=== PATIENT | male | born 1955 | race Caucasian/White ===

== ENCOUNTER 2016-11-30 06:32 | Emergency (ER) | payer MEDICARE ==
[2016-11-30] MEDS ORDERED: HYDROcodone/APAP 5-325MG 1 EACH TAB PO STA (07:18)
[2016-11-30] MEDS ORDERED: METOCLOPRAMIDE 10 MG TAB PO STA (07:18)
--- NOTE | 2016-11-30 07:27 | ED ---
General Adult HPI - General Chief complaint: Recheck/Abnormal Lab/Rx Stated complaint: withdraawls Time Seen by Provider: 11/30/16 07:05 Source: patient, EMS, RN notes reviewed Mode of arrival: EMS Limitations: no limitations - History of Present Illness Initial comments: Patient is a pleasant 61-year-old male presenting to the emergency department concerning for medication withdrawal. Patient has been on narcotics long-term for chronic back problems. Patient is on morphine. Patient ran out 4 days ago. [facility] not [facility] this medication until Friday. Patient feels like his skin is crawling and feels cold inside. Patient does have some nausea. Patient did have vomiting earlier however that has resolved. - Related Data Home Medications Medication Instructions Recorded Confirmed glipiZIDE [Glucotrol] 10 mg PO BID 03/12/15 10/18/15 Omeprazole [PriLOSEC] 10 mg PO DAILY 03/27/15 10/18/15 Morphine Sulfate [Ms Contin] 15 mg PO Q6HR 10/18/15 10/18/15 oxyCODONE HCL 30 mg PO Q6HR 10/18/15 10/18/15 Previous Rx's Medication Instructions Recorded Hydrocodone/Acetaminophen [[place] 1 each PO Q6HR PRN #12 tab 11/30/16 5-325] Allergies Allergy/AdvReac Type Severity Reaction Status Date / Time aspirin Allergy Itching Verified 10/18/15 18:26 ibuprofen [From Motrin] AdvReac Itching Verified 10/18/15 18:26 methocarbamol [From Robaxin] AdvReac Itching Verified 10/18/15 18:26 Review of Systems ROS Statement: Those systems with pertinent positive or pertinent negative responses have been documented in the HPI. ROS Other: All systems not noted in ROS Statement are negative. Constitutional: Denies: fever Eyes: Denies: eye pain ENT: Denies: ear pain Respiratory: Denies: cough Cardiovascular: Denies: chest pain Endocrine: Denies: fatigue Gastrointestinal: Reports: nausea Genitourinary: Denies: dysuria Musculoskeletal: Reports: back pain (Chronic) Skin: Denies: rash Neurological: Denies: headache Psychiatric: Reports: anxiety Past Medical History Past Medical History: Diabetes Mellitus, Hypertension Additional Past Medical History / Comment(s): back pain History of Any Multi-Drug Resistant Organisms: None Reported Additional Past Surgical History / Comment(s): Medical Hx-Chronic back pain, c4- c6 fusion, facial surgery Past Psychological History: No Psychological Hx Reported Smoking Status: Current every day smoker Past Alcohol Use History: None Reported Past Drug Use History: Marijuana General Exam Limitations: no limitations General appearance: alert Head exam: Present: atraumatic Eye exam: Present: normal appearance, PERRL ENT exam: Present: normal oropharynx Neck exam: Present: normal inspection Respiratory exam: Present: normal lung sounds bilaterally Cardiovascular Exam: Present: regular rate, normal rhythm GI/Abdominal exam: Present: soft. Absent: tenderness Extremities exam: Present: normal inspection Back exam: Present: tenderness (Mild lower back) Neurological exam: Present: alert. Absent: motor sensory deficit Psychiatric exam: Present: normal affect, normal mood Skin exam: Absent: rash Course Vital Signs 11/30/16 06:33 Temperature 98.0 F Pulse Rate 96 Respiratory 24 Rate Blood Pressure 141/63 O2 Sat by Pulse 98 Oximetry Disposition Clinical Impression: Medication withdrawal Disposition: HOME SELF-CARE Condition: Stable Instructions: Opioid Withdrawal (ED) Additional Instructions: Please follow-up with primary care physician Friday. Return for seizures, change in mental status, worsening symptoms or other concerns. Prescriptions: Hydrocodone/Acetaminophen [[place] 5-325] 1 each PO Q6HR PRN #12 tab PRN Reason: Pain Referrals: Manohar Walker DO [Primary Care Provider] - 1-2 days
[2016-11-30 07:44] VITALS: BP 154/83; PULSE 85; RESP 16; TEMP 98.3
== END 2016-11-30 07:45 | disposition home or self-care (01) ==
LOC: EC 06:32
DX: F11.23 Opioid dependence with withdrawal (principal); E11.9 Type 2 diabetes mellitus without complications; M43.22 Fusion of spine, cervical region; F17.200 Nicotine dependence, unspecified, uncomplicated; Z88.6 Allergy status to analgesic agent; Z88.8 Allergy status to other drugs, medicaments and biological substances; Z79.84 Long term (current) use of oral hypoglycemic drugs; Z79.899 Other long term (current) drug therapy
CPT/HCPCS: 99284

== ENCOUNTER 2017-03-23 22:10 | Emergency (ER) | payer MEDICARE ==
[2017-03-23 22:25] VITALS: RESP 16
[2017-03-23] MEDS ORDERED: cloNIDine 0.1 MG/24HR PATCH 1 PATCH PATCH TRANSDERM STA (22:26)
[2017-03-23] MEDS ORDERED: ONDANSETRON 4 MG/2 ML VIAL IM STA (22:26)
--- NOTE | 2017-03-23 22:53 | ED ---
General Adult HPI - General Chief complaint: Nausea/Vomiting/Diarrhea Stated complaint: withdrawal Time Seen by Provider: 03/23/17 22:13 Source: patient, RN notes reviewed Mode of arrival: EMS Limitations: no limitations - History of Present Illness Initial comments: 61-year-old male presents to the emergency department with a chief complaint of opiate withdrawal. Patient states he takes oxycodone he has not had it for about 4 days. Patient states that he is having nausea vomiting and diarrhea with this. Patient states that he just does not know if he can handle with jaws anymore. Patient states he is scheduled to get his medication on Friday. Patient states he hasn't had any fever or chills. Patient states this is much like her withdrawal symptoms that he had in the past. Patient states he takes oxycodone for chronic back pain. Patient denies any recent fever, chills, shortness of breath, chest pain, back pain, nausea vomiting, numbness or tingling, dysuria or hematuria, constipation or diarrhea, headaches or visual changes, or any other current symptoms. - Related Data Home Medications Medication Instructions Recorded Confirmed glipiZIDE [Glucotrol] 10 mg PO BID 03/12/15 10/18/15 Omeprazole [PriLOSEC] 10 mg PO DAILY 03/27/15 10/18/15 Morphine Sulfate [Ms Contin] 15 mg PO Q6HR 10/18/15 10/18/15 oxyCODONE HCL 30 mg PO Q6HR 10/18/15 10/18/15 Previous Rx's Medication Instructions Recorded Hydrocodone/Acetaminophen [[place] 1 each PO Q6HR PRN #12 tab 11/30/16 5-325] Ondansetron Odt [Zofran ODT] 4 mg PO Q8HR PRN #20 tab 03/23/17 Allergies Allergy/AdvReac Type Severity Reaction Status Date / Time aspirin Allergy Itching Verified 10/18/15 18:26 ibuprofen [From Motrin] AdvReac Itching Verified 10/18/15 18:26 methocarbamol [From Robaxin] AdvReac Itching Verified 10/18/15 18:26 Review of Systems ROS Statement: Those systems with pertinent positive or pertinent negative responses have been documented in the HPI. ROS Other: All systems not noted in ROS Statement are negative. Past Medical History Past Medical History: Diabetes Mellitus, Hypertension Additional Past Medical History / Comment(s): back pain History of Any Multi-Drug Resistant Organisms: None Reported Additional Past Surgical History / Comment(s): Medical Hx-Chronic back pain, c4- c6 fusion, facial surgery Past Psychological History: No Psychological Hx Reported Smoking Status: Current every day smoker Past Alcohol Use History: None Reported Past Drug Use History: Marijuana General Exam Limitations: no limitations General appearance: alert, in no apparent distress ENT exam: Present: normal exam, mucous membranes moist Neck exam: Present: normal inspection. Absent: tenderness, meningismus, lymphadenopathy Respiratory exam: Present: normal lung sounds bilaterally. Absent: respiratory distress, wheezes, rales, rhonchi, stridor Cardiovascular Exam: Present: regular rate, normal rhythm, normal heart sounds. Absent: systolic murmur, diastolic murmur, rubs, gallop, clicks Neurological exam: Present: alert, oriented X3 Psychiatric exam: Present: normal affect, normal mood Skin exam: Present: warm, dry, intact, normal color. Absent: rash Course Vital Signs 03/23/17 22:19 Temperature 98.1 F Pulse Rate 89 Respiratory 16 Rate Blood Pressure 147/76 O2 Sat by Pulse 96 Oximetry Medical Decision Making - Medical Decision Making 61-year-old male presents to the emergency department with a chief complaint opiate withdrawal. This time we give the patient clonidine patch as well as Zofran for home. Discussed. Dr. juvenal briggs. Patient stated he understood and all his questions have been answered. He will be discharged. Disposition Clinical Impression: Opiate withdrawal Disposition: HOME SELF-CARE Condition: Stable Instructions: Oxycodone/Acetaminophen (By mouth) Additional Instructions: Please use medication as discussed. Please follow up with family doctor if symptoms have not improved over the next two days. Please return to the emergency room if your symptoms increase or worsen or for any other concerns. Prescriptions: Ondansetron Odt [Zofran ODT] 4 mg PO Q8HR PRN #20 tab PRN Reason: Nausea Referrals: Manohar Walker DO [Primary Care Provider] - 1-2 days Time of Disposition: 22:52
[2017-03-23 23:00] VITALS: BP 146/82; PULSE 94; TEMP 98.2
== END 2017-03-23 23:03 | disposition home or self-care (01) ==
LOC: EC 22:10
DX: F11.23 Opioid dependence with withdrawal (principal); R11.2 Nausea with vomiting, unspecified; E11.9 Type 2 diabetes mellitus without complications; F17.200 Nicotine dependence, unspecified, uncomplicated; Z79.891 Long term (current) use of opiate analgesic; Z79.899 Other long term (current) drug therapy; Z88.6 Allergy status to analgesic agent; Z88.8 Allergy status to other drugs, medicaments and biological substances
CPT/HCPCS: 99284; 96372; J2405

== ENCOUNTER 2019-04-27 04:09 | Emergency (ER) | payer MEDICARE ==
[2019-04-27 04:17] VITALS: BP 137/75; PULSE 68; RESP 18; TEMP 98.4
[2019-04-27] MEDS ORDERED: DIPH,PERTUS(ACELL)TETVAC-LF 0.5 ML VIAL IM ONE (04:33)
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
--- NOTE | 2019-04-27 05:10 | XR ---
EXAM: XR Right Ribs, 2 Views CLINICAL HISTORY: ITS.REASON XR Reason: Pain TECHNIQUE: Frontal and oblique views of the right ribs. COMPARISON: No relevant prior studies available. FINDINGS: Lungs: No consolidation or mass. Pleural space: No effusion. Bones/joints: No acute fracture. No dislocation. IMPRESSION: Normal right rib x-rays.
--- NOTE | 2019-04-27 05:11 | XR ---
EXAM: XR Right Foot Complete, 3 or More Views CLINICAL HISTORY: ITS.REASON XR Reason: Pain, attention 1st toe TECHNIQUE: Frontal, lateral and oblique views of the right foot. COMPARISON: No relevant prior studies available. FINDINGS: Bones/joints: No acute fracture. No dislocation. Mild joint space loss at the metatarsophalangeal joint of the first toe. Diffuse osteopenia. Soft tissues: Unremarkable. No radiopaque foreign body. IMPRESSION: No acute findings.
--- NOTE | 2019-04-27 05:19 | XR ---
EXAM: XR Lumbar Spine, 2 or 3 Views CLINICAL HISTORY: ITS.REASON XR Reason: Pain TECHNIQUE: Frontal and lateral views of the lumbar spine. COMPARISON: 02/22/15 FINDINGS: Vertebrae: Bridging osteophytes are again seen at L1-2 and L2-3.. No acute fracture. Normal alignment. Severe facet arthrosis in the lower lumbar spine. Disc spaces: Mild disc height loss throughout.. Soft tissues: Ectatic aorta measuring up to 2.5 cm. IMPRESSION: No acute findings. Degenerative changes. Ectatic aorta measuring up to 2.5 cm.
== END 2019-04-27 05:30 | disposition home or self-care (01) ==
LOC: EC 04:09
DX: S29.9XXA Unspecified injury of thorax, initial encounter (principal); S80.211A Abrasion, right knee, initial encounter; M79.674 Pain in right toe(s); F17.200 Nicotine dependence, unspecified, uncomplicated; E11.9 Type 2 diabetes mellitus without complications; G89.29 Other chronic pain; M54.5 Low back pain; Z23 Encounter for immunization; Z79.84 Long term (current) use of oral hypoglycemic drugs; Z79.891 Long term (current) use of opiate analgesic; Z88.6 Allergy status to analgesic agent; Z88.8 Allergy status to other drugs, medicaments and biological substances; Z98.1 Arthrodesis status; V18.4XXA Pedal cycle driver injured in noncollision transport accident in traffic accident, initial encounter; Y93.55 Activity, bike riding; Y92.410 Unspecified street and highway as the place of occurrence of the external cause
CPT/HCPCS: 72100; 90471; 90715; 99283

== ENCOUNTER 2019-06-26 02:19 | Emergency (ER) | payer OTHER ==
[2019-06-26 03:28] VITALS: RESP 18; TEMP 97.3
--- NOTE | 2019-06-26 03:34 | XR ---
EXAM: XR Right Hand Complete, 3 or More Views CLINICAL HISTORY: ITS.REASON XR Reason: fall TECHNIQUE: Frontal, lateral and oblique views of the right hand. COMPARISON: None FINDINGS: Bones/joints: Nondisplaced fracture of the base of the right fifth metacarpal. Osteopenia. Mild degenerative changes of the right first MCP joint. Screws traversing the distal right fourth metacarpal. Soft tissues: Mild soft tissue swelling along the fracture. IMPRESSION: Nondisplaced fracture of the base of the right fifth metacarpal.
--- NOTE | 2019-06-26 03:52 | CT ---
EXAM: CT Head Without Intravenous Contrast CLINICAL HISTORY: ITS.REASON CT Reason: fall TECHNIQUE: Axial computed tomography images of the head/brain without intravenous contrast. CTDI is 45.2 mGy and DLP is 1003 mGy-cm. This CT exam was performed using one or more of the following dose reduction techniques: automated exposure control, adjustment of the mA and/or kV according to patient size, and/or use of iterative reconstruction technique. COMPARISON: CT head on 02/22/2015 FINDINGS: Brain: No acute infarct or hemorrhage identified. No extra-axial fluid collection. No mass effect or midline shift. Similar mild areas of hypoattenuation in the supratentorial white matter likely represent chronic small vessel ischemic changes. Ventricles and sulci: No ventriculomegaly or intraventricular hemorrhage. Skull: Normal. No bony lesion or fracture. 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 Sinuses: Normal. No air-fluid levels or mucosal thickening. Orbits: Grossly unremarkable. Other: Atherosclerotic calcifications in the intracranial vasculature. IMPRESSION: 1. No acute intracranial abnormality. 2. Stable mild chronic small vessel ischemic disease. EXAM: CT Cervical Spine Without Intravenous Contrast CLINICAL HISTORY: ITS.REASON CT Reason: fall TECHNIQUE: Axial computed tomography images of the cervical spine without intravenous contrast. CTDI is 9.9 mGy and DLP is 251.3 mGy-cm. This CT exam was performed using one or more of the following dose reduction techniques: automated exposure control, adjustment of the mA and/or kV according to patient size, and/or use of iterative reconstruction technique. COMPARISON: CT C-spine on 02/22/2015 FINDINGS: Bones: Straightening of the normal cervical lordosis. Osteopenia. Anterior fusion hardware at C5-6. No acute fracture or bony lesion. Disc spaces: Degenerative changes of the spine. Stable mild anterolisthesis of C3 on C4. Soft tissues: Normal. IMPRESSION: No acute traumatic abnormality. <MYCVCSECTION> [employer] 06/26/19 04:08 Verify Receipt Verified receipt with ARIAS Nieves in ER for Dr. Mark on 06/26 04:08 (-04:00) 09/07/19 04:[address] Barahona on 06/26 04:21 (-04:00)
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
[2019-06-26 04:46] VITALS: BP 108/70; PULSE 88
== END 2019-06-26 04:44 | disposition home or self-care (01) ==
LOC: EC 02:19
DX: S16.1XXA Strain of muscle, fascia and tendon at neck level, initial encounter (principal); S60.031A Contusion of right middle finger without damage to nail, initial encounter; E11.9 Type 2 diabetes mellitus without complications; F17.200 Nicotine dependence, unspecified, uncomplicated; Z88.6 Allergy status to analgesic agent; Z88.8 Allergy status to other drugs, medicaments and biological substances; Z79.84 Long term (current) use of oral hypoglycemic drugs; Z79.891 Long term (current) use of opiate analgesic; Z79.899 Other long term (current) drug therapy; Z98.1 Arthrodesis status; V68.9XXA Unspecified occupant of heavy transport vehicle injured in noncollision transport accident in traffic accident, initial encounter; Y92.410 Unspecified street and highway as the place of occurrence of the external cause
CPT/HCPCS: 70450; 72125; 99284

== ENCOUNTER 2019-07-04 07:57 | Emergency (ER) | payer MEDICARE, OTHER ==
[2019-07-04] MEDS ORDERED: SODIUM CHLORIDE 0.9% 1,000 ML IV STA ×2 (08:20)
--- NOTE | 2019-07-04 08:22 | ED ---
SOB HPI - General Chief Complaint: Shortness of Breath Stated Complaint: SOB, vomiting Time Seen by Provider: 07/04/19 08:08 Source: patient, RN notes reviewed, old records reviewed Mode of arrival: ambulatory Limitations: no limitations - History of Present Illness Initial Comments: Patient 53-year-old male who presents rinsed department today with 2 days of feeling difficulty breathing. He denies a significant coughing. He reports that he takes a deep breath he has some pain over his right side of his abdomen and back. Patient states that he thinks his symptoms related after he fell approximately one week ago last Friday. He reports that he was getting stiff when he and fell backward. He states he landed on his right wrist as well as c omplaining of some chest and abdominal pain. Patient states that he has never had any history of gallbladder problems before. Patient states that he is also had increased nausea and vomiting. Patient states he's had no changes in urination or bowel habits. Patient states that he's been feeling worse over the past week. Patient states that he has no cardiac history. Former drinker. Patient reports he came to the ER one week ago when he had the initial fall, he had a CT of his brain and x-ray of his wrist. - Related Data Home Medications Medication Instructions Recorded Confirmed glipiZIDE [Glucotrol] 10 mg PO BID 03/12/15 07/04/19 Omeprazole [PriLOSEC] 10 mg PO DAILY 03/27/15 07/04/19 oxyCODONE HCL [OxyIR] 5 mg PO Q2H PRN 07/04/19 07/04/19 Previous Rx's Medication Instructions Recorded Ibuprofen [Motrin] 600 mg PO Q8HR PRN #20 tab 07/04/19 Orphenadrine [Norflex] 100 mg PO Q12H #12 tablet.er 07/04/19 Allergies Allergy/AdvReac Type Severity Reaction Status Date / Time aspirin Allergy Itching Verified 07/04/19 08:49 ibuprofen [From Motrin] AdvReac Itching Verified 07/04/19 08:49 methocarbamol [From Robaxin] AdvReac Itching Verified 07/04/19 08:49 Review of Systems ROS Statement: Those systems with pertinent positive or pertinent negative responses have been documented in the HPI. ROS Other: All systems not noted in ROS Statement are negative. Past Medical History Past Medical History: Diabetes Mellitus, Hypertension Additional Past Medical History / Comment(s): back pain History of Any Multi-Drug Resistant Organisms: None Reported Additional Past Surgical History / Comment(s): Medical Hx-Chronic back pain, c4- c6 fusion, facial surgery Past Psychological History: No Psychological Hx Reported Smoking Status: Current every day smoker Past Alcohol Use History: None Reported Past Drug Use History: None Reported General Exam - General Exam Comments Initial Comments: 63-year-old male. Alert and oriented. No distress. Limitations: no limitations Head exam: Present: atraumatic, normocephalic, normal inspection Eye exam: Present: PERRL, EOMI, other (Pressure in R eye is 11, L eye is 10. ). Absent: normal appearance (Patient has right eye dilation and left eye pinpoint pupil.), scleral icterus, conjunctival injection, periorbital swelling ENT exam: Present: normal exam, mucous membranes moist Neck exam: Present: normal inspection. Absent: tenderness, meningismus, lymphadenopathy Respiratory exam: Present: other (rib tenderness over R ribs. ). Absent: normal lung sounds bilaterally, respiratory distress, rales, rhonchi, stridor Cardiovascular Exam: Present: regular rate, normal rhythm, normal heart sounds. Absent: systolic murmur, diastolic murmur, rubs, gallop, clicks GI/Abdominal exam: Present: soft, tenderness (ruq tenderness), normal bowel sounds. Absent: distended, guarding, rebound, rigid Extremities exam: Present: normal inspection, full ROM, normal capillary refill. Absent: tenderness, pedal edema, joint swelling, calf tenderness Right Elbow exam: Present: normal inspection, full ROM, swelling Forearm Wrist exam: Present: normal inspection, full ROM, tenderness (over distal radius. ) Hand Wrist exam: Present: normal inspection, full ROM, tenderness (over distal wrist and 5th metacarpal. ) Neuro motor exam: Present: wrist extension intact, thumb IP flexion intact Vascular: Present: normal capillary refill Back exam: Present: normal inspection, full ROM Neurological exam: Present: alert, oriented X3, CN II-XII intact Psychiatric exam: Present: normal affect, normal mood Skin exam: Present: warm, dry, intact, normal color. Absent: rash Course Vital Signs 07/04/19 07/04/19 07/04/19 07:59 08:02 10:02 Temperature 97.6 F Pulse Rate 94 91 Respiratory 20 20 20 Rate Blood Pressure 143/80 152/81 O2 Sat by Pulse 98 95 Oximetry 07/04/19 07/04/19 07/04/19 12:00 14:14 16:30 Temperature 97.9 F Pulse Rate 80 68 64 Respiratory 18 18 18 Rate Blood Pressure 115/66 102/67 113/73 O2 Sat by Pulse 98 97 97 Oximetry Medical Decision Making - Medical Decision Making 63 year old male withmultiple complaints. CC was R rib and abdoinal pain 1 week post fall from back of truck. he also reported that 2 days ago he became nauseated and complaned o. At this time after extensive evaluation, labs are normal. CT Chest abdomen andplevis showed multiple healing rib fractures. Patient also had questionable cholelightiasis or acute cholecystiits. US completed and shows no secondary signs of cholecystisis and patient has normal vitals and labs. Patient wrist xray shows old 5th metacarpal fracture. He was placed in a volar slint and he was given referral to ortho. He also complains of visual changes, but has no signs of retinal detachemnt, and patient describes vision as a sillhouette. Patient has cataracts and sees Dr. Tamez. Patient at this time has normal eye pressures. Patient advised promot opthalmology follow up. - Lab Data Result diagrams: 07/04/19 08:35 07/04/19 08:35 Lab Results 07/04/19 07/04/19 07/04/19 Range/Units 08:35 08:35 08:35 WBC 6.5 (3.8-10.6) k/uL RBC 4.25 L (4.30-5.90) m/uL Hgb 13.2 (13.0-17.5) gm/dL Hct 39.0 (39.0-53.0) % MCV 91.7 (80.0-100.0) fL MCH 31.1 (25.0-35.0) pg MCHC 33.9 (31.0-37.0) g/dL RDW 12.4 (11.5-15.5) % Plt Count 222 (150-450) k/uL Neutrophils % 58 % Lymphocytes % 30 % Monocytes % 6 % Eosinophils % 4 % Basophils % 1 % Neutrophils # 3.8 (1.3-7.7) k/uL Lymphocytes # 2.0 (1.0-4.8) k/uL Monocytes # 0.4 (0-1.0) k/uL Eosinophils # 0.2 (0-0.7) k/uL Basophils # 0.1 (0-0.2) k/uL PT 10.5 (9.0-12.0) sec INR 1.0 (<1.2) APTT 25.3 (22.0-30.0) sec Sodium 139 (137-145) mmol/L Potassium 4.1 (3.5-5.1) mmol/L Chloride 104 (98-107) mmol/L Carbon Dioxide 27 (22-30) mmol/L Anion Gap 8 mmol/L BUN 24 H (9-20) mg/dL Creatinine 0.90 (0.66-1.25) mg/dL Est GFR (CKD-EPI)AfAm >90 (>60 ml/min/1.73 sqM) Est GFR (CKD-EPI)NonAf 89 (>60 ml/min/1.73 sqM) Glucose 77 (74-99) mg/dL Calcium 9.8 (8.4-10.2) mg/dL Magnesium 2.0 (1.6-2.3) mg/dL Total Bilirubin 0.7 (0.2-1.3) mg/dL AST 50 (17-59) U/L ALT 51 (21-72) U/L Alkaline Phosphatase 52 (38-126) U/L Troponin I (0.000-0.034) ng/mL NT-Pro-B Natriuret Pep pg/mL Total Protein 6.8 (6.3-8.2) g/dL Albumin 4.2 (3.5-5.0) g/dL 07/04/19 07/04/19 Range/Units 08:35 08:35 WBC (3.8-10.6) k/uL RBC (4.30-5.90) m/uL Hgb (13.0-17.5) gm/dL Hct (39.0-53.0) % MCV (80.0-100.0) fL MCH (25.0-35.0) pg MCHC (31.0-37.0) g/dL RDW (11.5-15.5) % Plt Count (150-450) k/uL Neutrophils % % Lymphocytes % % Monocytes % % Eosinophils % % Basophils % % Neutrophils # (1.3-7.7) k/uL Lymphocytes # (1.0-4.8) k/uL Monocytes # (0-1.0) k/uL Eosinophils # (0-0.7) k/uL Basophils # (0-0.2) k/uL PT (9.0-12.0) sec INR (<1.2) APTT (22.0-30.0) sec Sodium (137-145) mmol/L Potassium (3.5-5.1) mmol/L Chloride (98-107) mmol/L Carbon Dioxide (22-30) mmol/L Anion Gap mmol/L BUN (9-20) mg/dL Creatinine (0.66-1.25) mg/dL Est GFR (CKD-EPI)AfAm (>60 ml/min/1.73 sqM) Est GFR (CKD-EPI)NonAf (>60 ml/min/1.73 sqM) Glucose (74-99) mg/dL Calcium (8.4-10.2) mg/dL Magnesium (1.6-2.3) mg/dL Total Bilirubin (0.2-1.3) mg/dL AST (17-59) U/L ALT (21-72) U/L Alkaline Phosphatase (38-126) U/L Troponin I <0.012 (0.000-0.034) ng/mL NT-Pro-B Natriuret Pep 66 pg/mL Total Protein (6.3-8.2) g/dL Albumin (3.5-5.0) g/dL 07/04/19 08:53 EKG shows Sinus rhytm with 1st degree AV block. Incompete Right bundle bracnch block. Borderline EKG. Vent rate 76 bpm. UT interval 210 ms. QRS 100ms. Qt/Qtc 374/420 ms. - Radiology Data Radiology results: report reviewed CT shows multiple partially handgrip fractures of the right anterior third through seventh ribs. Examination is negative for PE. Hepatic cyst. Cholelithiasis negative gallbladder And cholecystitis. Small hernia with fat only measuring 13 mm. Degenerative changes within spine. Wrist is evidence of a rolled fracture of the base of the fifth metacarpal. Post surgical changes. US shows evidence of gallstones without secondary ultrasound evidence for acute cholecystitis however Patient pain right upper quadrant is positive for cyanotic excluded. Consider HIDA scan for further evaluation. Disposition Clinical Impression: Fall, Multiple rib fractures, Right wrist injury, Visual changes Disposition: HOME SELF-CARE Condition: Good Instructions (If sedation given, give patient instructions): Rib Fracture (ED) Additional Instructions: Take pain meds as prescribed. Use the incentive spirometer for breathing as directed. Patient should follow-up with ophthalmology as well and PCP. Follow up with ortho. Return to the emergency department if any alarming signs or symptoms occur. Prescriptions: Ibuprofen [Motrin] 600 mg PO Q8HR PRN #20 tab PRN Reason: Pain Orphenadrine [Norflex] 100 mg PO Q12H #12 tablet.er Is patient prescribed a controlled substance at d/c from ED?: No Referrals: Myranda Paredes PAC [PHYSICIAN [employer]] - 1-2 days Lalo Tamez MD [STAFF PHYSICIAN] - 1-2 days [facility] [Primary Care Provider] - 1-2 days Time of Disposition: 16:35
[2019-07-04 09:06] LABS: Basophils # (A) 0.1 k/uL (0-0.2); Basophils % (A) 1 %; Eosinophils # (A) 0.2 k/uL (0-0.7); Eosinophils % (A) 4 %; HGB 13.2 gm/dL (13.0-17.5); Lymphocytes % (A) 30 %; MCH 31.1 pg (25.0-35.0); MCHC 33.9 g/dL (31.0-37.0); MCV 91.7 fL (80.0-100.0); Monocytes # (A) 0.4 k/uL (0-1.0); Monocytes % (A) 6 %; Neutrophils # (A) 3.8 k/uL (1.3-7.7); Neutrophils % (A) 58 %; Platelet Count 222 k/uL (150-450); RBC 4.25 m/uL (4.30-5.90); RDW 12.4 % (11.5-15.5); WBC 6.5 k/uL (3.8-10.6)
[2019-07-04 09:10] LABS: African American GFR (CKD) >90 (>60 ml/min/1.73 sqM); Albumin 4.2 g/dL (3.5-5.0); Anion Gap 8 mmol/L; Blood Urea Nitrogen 24 mg/dL (9-20); Calcium 9.8 mg/dL (8.4-10.2); Carbon Dioxide 27 mmol/L (22-30); Chloride 104 mmol/L (98-107); Glucose 77 mg/dL (74-99); Sodium 139 mmol/L (137-145); Total Bilirubin 0.7 mg/dL (0.2-1.3); Total Protein 6.8 g/dL (6.3-8.2)
[2019-07-04 09:12] LABS: ALT 51 U/L (21-72); AST 50 U/L (17-59); Alkaline Phosphatase 52 U/L (38-126); Partial Thromboplastin Time 25.3 sec (22.0-30.0); Potassium 4.1 mmol/L (3.5-5.1); Prothrombin Time 10.5 sec (9.0-12.0)
--- NOTE | 2019-07-04 09:53 | XR ---
EXAMINATION TYPE: XR chest 2V DATE OF EXAM: 07/04/2019 HISTORY: difficulty breathing. REFERENCE: Previous study dated 04/27/2019. FINDINGS: There has been a previous ACDF of the lower cervical spine. The lungs are clear. Pleural spaces are clear. Heart size is normal. IMPRESSION: NO ACUTE INTRATHORACIC ABNORMALITY.
--- NOTE | 2019-07-04 09:56 | XR ---
EXAMINATION TYPE: XR wrist complete RT , 4 VIEWS DATE OF EXAM ORDERED: 07/04/2019 HISTORY: PAIN. COMPARISON: Previous study dated 06/26/2019. FINDINGS: There has been a previous internal fixation of the fourth metacarpal. Minimally displaced fracture of the fifth metacarpal is again identified, unchanged from previous. No new fractures ident ified. IMPRESSION: 1. EVIDENCE OF AN OLD FRACTURE OF THE BASE OF THE RIGHT FIFTH METACARPAL. 2. POSTSURGICAL CHANGE. CODE D: SUBSEQUENT ENCOUNTER WITH ROUTINE HEALING.
[2019-07-04] MEDS ORDERED: MORPHINE SULFATE 4 MG/ML SYRINGE IVP STA (11:26)
[2019-07-04 12:35] VITALS: RESP 18
--- NOTE | 2019-07-04 13:14 | CT ---
EXAMINATION TYPE: CT chest angio for PE, CT abdomen pelvis w con DATE OF EXAM: 07/04/2019 COMPARISON: HISTORY: Rt rib pain, RLQ pain, SOB post fall last week CT DLP: 1699.3 9 (CTA chest and CT abd pelvis) mGycm Automated exposure control for dose reduction was used. CONTRAST: CT Chest for pulmonary embolism performed with with IV Contrast, patient injected with 100 mL of Isov ue 300. FINDINGS: There is atelectasis in the dependent portions of both lungs. There is no significant axillary, mediastinal or hilar adenopathy. There is no evidence of an embolus. The aorta is normal in caliber without evidence of dissection. There is no pleural or pericardial flu id. The heart is not enlarged. There are undisplaced fractures of the right anterior third through seventh ribs. These have surround ing callus abnormality. This hypertrophic spondylosis throughout the dorsal spine. Within the abdomen, the liver is normal in size. There are scattered low attenuating lesions within t he left and right lobes of the liver, likely reflecting cysts. There is evidence of old granulomatous disease within the liver. Spleen is normal in size. There are gallstones within the gallbladder. The gallbladder wall is thickened. This common hepatic d uct measures 1.2 cm. Both adrenal glands are normal. Both kidneys demonstrate function and appear morphologically normal. There is some fatty infiltration of the pancreas. There is no significant retroperitoneal, iliac or inguinal adenopathy. The bladder wall appears thickened. The bladder is not distended however. There is no significant diverticular change and there is no radiographic evidence of diverticulitis. The appendix is unremarkable. Small bowel loops are of normal caliber. There is a small periumbilical hernia containing fat only with a mouth measuring 13 mm. There is no free fluid and no free air. There is degenerative disc disease and hypertrophic spondylosis as well as facet arthropathy in the l ower lumbar spine. No spinal fracture is seen. IMPRESSION: 1. MULTIPLE, PARTIALLY HEALED FRACTURES OF THE RIGHT ANTERIOR THIRD THROUGH SEVENTH RIBS. 2. THIS EXAMINATION IS NEGATIVE FOR PULMONARY EMBOLUS. 3. PROBABLE HEPATIC CYSTS. THIS COULD BE CONFIRMED WITH ULTRASOUND. THERE IS EVIDENCE OF OLD GRANULOM ATOUS DISEASE OF THE LIVER. 4. CHOLELITHIASIS AND THICKENING OF THE GALLBLADDER WALL. I CANNOT EXCLUDE ACUTE CHOLECYSTITIS. 5. SMALL, PERIUMBILICAL HERNIA CONTAINING FAT ONLY WITH A MOUTH MEASURING 13 MM. 6. DEGENERATIVE CHANGES WITHIN THE SPINE.
[2019-07-04] MEDS ORDERED: HYDROmorphone 1 MG/ML 1 ML SYRINGE IVP STA (13:55)
--- NOTE | 2019-07-04 14:17 | CT ---
EXAMINATION TYPE: CT brain wo con DATE OF EXAM: 07/04/2019 HISTORY: Headache and unequal pupils. CT DLP: 1021.4 mGycm. Automated Exposure Control for Dose Reduction was Utilized. TECHNIQUE: CT scan of the head is performed without contrast. COMPARISON: CT brain from 8 days earlier.. FINDINGS: There is no acute intracranial hemorrhage or midline shift identified. There is diffuse v entricular and sulcal remain normal in size for patient's age. There is low-attenuation in the periv entricular white matter consistent with chronic small vessel ischemic change. Hyperdense vessels is p roduct of CTA chest exam performed slightly earlier today. The globes are intact and the visualized s inuses are clear. Surgical change in the mid to lower cervical spine is partially visualized on loc alizer. IMPRESSION: No acute intracranial hemorrhage or midline shift. There is stable mild chronic small v essel ischemic change noted.
--- NOTE | 2019-07-04 15:56 | US ---
EXAMINATION TYPE: US gallbladder DATE OF EXAM: 07/04/2019 COMPARISON: CT earlier today. CLINICAL HISTORY: leger, unequal pupil. 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 There are a few simple appearing thin-walled cyst measured by the technologist scattered throughout the liver wh ich correlates with CT. Background mild diffuse fatty infiltration is redemonstrated. Mobile gallston es in gallbladder seen without pericholecystic fluid or abnormal gallbladder wall thickening. IMPRESSION: Redemonstration of gallstones without convincing secondary ultrasound evidence for acute cholecystitis however in patient with right upper quadrant pain and a positive sonographic Estrada sig n cannot be entirely excluded. Consider HIDA scan to further evaluate.
[2019-07-04 16:31] VITALS: BP 113/73; PULSE 64; TEMP 97.9
== END 2019-07-04 16:52 | disposition home or self-care (01) ==
LOC: EC 07:57
DX: S22.41XA Multiple fractures of ribs, right side, initial encounter for closed fracture (principal); S62.316A Displaced fracture of base of fifth metacarpal bone, right hand, initial encounter for closed fracture; E11.9 Type 2 diabetes mellitus without complications; F17.200 Nicotine dependence, unspecified, uncomplicated; Z79.84 Long term (current) use of oral hypoglycemic drugs; Z79.899 Other long term (current) drug therapy; Z88.6 Allergy status to analgesic agent; Z88.8 Allergy status to other drugs, medicaments and biological substances; Z98.1 Arthrodesis status; W19.XXXA Unspecified fall, initial encounter
CPT/HCPCS: 99285; 29125; 96374; 96375; 96361 ×6; 36415; 93005; 83880; 80053; 83735; 84484; 85025; 85610; 85730; 73110; 71046; 76705; 70450; 71275; 74177; J2270; J1170; Q9967

== ENCOUNTER 2019-07-08 08:25 | Emergency (ER) | payer MEDICARE, OTHER ==
[2019-07-08 08:29] VITALS: TEMP 97.9
[2019-07-08] MEDS ORDERED: ALBUTEROL NEBULIZED 2.5 MG/3 ML INHALATION STA (09:36)
[2019-07-08] MEDS ORDERED: MORPHINE SULFATE 4 MG/ML SYRINGE IM STA (09:37)
[2019-07-08] MEDS ORDERED: KETOROLAC 60 MG/2 ML VIAL IM STA (09:37)
--- NOTE | 2019-07-08 10:28 | XR ---
EXAMINATION TYPE: XR chest 2V DATE OF EXAM: 07/08/2019 COMPARISON: Prior chest x-ray 07/04/[address] 07/04/2019 HISTORY: Shortness of breath TECHNIQUE: Frontal and lateral views of the chest are obtained. FINDINGS: There is no focal air space opacity, pleural effusion, or pneumothorax seen. The cardiac silhouette size is within normal limits. The osseous structures are intact, patient is an anterior right rib fractures are not well seen on plain film. Postop changes noted to the lower cervical spine . Prominent lung volumes compatible with patient's underlying emphysema, COPD. IMPRESSION: No acute cardiopulmonary process.
[2019-07-08] MEDS ORDERED: CYCLOBENZAPRINE 10MG STARTER 3 TAB BTL PO STA (11:05)
--- NOTE | 2019-07-08 11:08 | ED ---
General Adult HPI - General Chief complaint: Recheck/Abnormal Lab/Rx Stated complaint: hurts to breathe Time Seen by Provider: 07/08/19 08:44 Source: patient, RN notes reviewed, old records reviewed Mode of arrival: wheelchair Limitations: no limitations - History of Present Illness Initial comments: Physical 3-year-old male present today for evaluation for recheck for continued right rib pain. With breathing. Patient was diagnosed multiple rib fractures. 2 days ago. He does take at home oxycodone. Patient reports that just he works was not comfortable to sleep last night. Patient reports that he fell proximally 2 weeks ago. At this time Patient states he's had no significant cough or hemoptysis. Patient denies any resting chest pain pain is only worse with certain movements. - Related Data Home Medications Medication Instructions Recorded Confirmed glipiZIDE [Glucotrol] 10 mg PO BID 03/12/15 07/08/19 Omeprazole [PriLOSEC] 10 mg PO DAILY 03/27/15 07/08/19 oxyCODONE HCL [OxyIR] 5 mg PO Q2H PRN 07/04/19 07/08/19 Multivitamins, Thera [Multivitamin 1 tab PO DAILY 07/08/19 07/08/19 (formulary)] Previous Rx's Medication Instructions Recorded Ibuprofen [Motrin] 600 mg PO Q8HR PRN #20 tab 07/04/19 Orphenadrine [Norflex] 100 mg PO Q12H #12 tablet.er 07/04/19 Albuterol Inhaler [Ventolin Hfa 1 - 2 puff INHALATION RT-Q6H PRN 07/08/19 Inhaler] #1 inhaler Cyclobenzaprine [Flexeril] 10 mg PO TID #12 tab 07/08/19 Lidocaine 5% Patch [Lidoderm 5% 1 patch TOPICAL DAILY #30 patch 07/08/19 Patch] Cyclobenzaprine [Flexeril] 10 mg PO TID #30 tab 07/13/19 Allergies Allergy/AdvReac Type Severity Reaction Status Date / Time aspirin Allergy Itching Verified 07/13/19 03:31 ibuprofen [From Motrin] Allergy Itching Verified 07/13/19 03:31 methocarbamol [From Robaxin] Allergy Itching Verified 07/13/19 03:31 Review of Systems ROS Statement: Those systems with pertinent positive or pertinent negative responses have been documented in the HPI. ROS Other: All systems not noted in ROS Statement are negative. Past Medical History Past Medical History: Diabetes Mellitus, Hypertension Additional Past Medical History / Comment(s): back pain History of Any Multi-Drug Resistant Organisms: None Reported Additional Past Surgical History / Comment(s): Medical Hx-Chronic back pain, c4- c6 fusion, facial surgery Past Psychological History: No Psychological Hx Reported Smoking Status: Current every day smoker Past Alcohol Use History: None Reported Past Drug Use History: None Reported General Exam - General Exam Comments Initial Comments: 63-year-old male. Alert and oriented. No distress. Limitations: no limitations Head exam: Present: atraumatic, normocephalic, normal inspection Eye exam: Present: normal appearance, PERRL, EOMI. Absent: scleral icterus, conjunctival injection, periorbital swelling ENT exam: Present: normal exam, mucous membranes moist Neck exam: Present: normal inspection. Absent: tenderness, meningismus, lymphadenopathy Respiratory exam: Present: normal lung sounds bilaterally, chest wall tenderness (Right rib ). Absent: respiratory distress, wheezes, rales, rhonchi, stridor Cardiovascular Exam: Present: regular rate, normal rhythm, normal heart sounds. Absent: systolic murmur, diastolic murmur, rubs, gallop, clicks GI/Abdominal exam: Present: soft, normal bowel sounds. Absent: distended, tenderness, guarding, rebound, rigid Extremities exam: Present: normal inspection, full ROM, normal capillary refill. Absent: tenderness, pedal edema, joint swelling, calf tenderness Back exam: Present: normal inspection Neurological exam: Present: alert, oriented X3, CN II-XII intact Psychiatric exam: Present: normal affect, normal mood Skin exam: Present: warm, dry, intact, normal color. Absent: rash Course Vital Signs 07/08/19 07/08/19 07/08/19 08:26 09:42 09:58 Temperature 97.9 F Pulse Rate 83 84 86 Respiratory 18 Rate Blood Pressure 115/69 O2 Sat by Pulse 97 Oximetry 07/08/19 11:27 Temperature 97.9 F Pulse Rate 77 Respiratory 17 Rate Blood Pressure 125/75 O2 Sat by Pulse 96 Oximetry Medical Decision Making - Medical Decision Making 63-year-old male present to return for safe reevaluation pain management for continued pain from right rib fractures after fall 2 weeks ago. Patient argues prescribed narcotic pain medicine. Discussed repeating a chest x-ray without pneumothorax. This is negative for any acute changes. Patient at this time has been given another dose of pain medicine the ER. Discussed he is nontoxic and lidocaine patches as well. Patient is agreeable to treatment plan will comply. Return parameters were discussed. - Radiology Data Radiology results: report reviewed X-rays negative for any acute process. Disposition Clinical Impression: Rib pain on right side, Rib fracture Disposition: HOME SELF-CARE Condition: Good Instructions (If sedation given, give patient instructions): Rib Fracture (ED) Additional Instructions: Please use medication as discussed. Please follow up with family doctor if symptoms have not improved over the next two days. Please return to the emergency room if your symptoms increase or worsen or for any other concerns. Prescriptions: Cyclobenzaprine [Flexeril] 10 mg PO TID #12 tab Lidocaine 5% Patch [Lidoderm 5% Patch] 1 patch TOPICAL DAILY #30 patch Albuterol Inhaler [Ventolin Hfa Inhaler] 1 - 2 puff INHALATION RT-Q6H PRN #1 inhaler PRN Reason: Shortness Of Breath Is patient prescribed a controlled substance at d/c from ED?: No Referrals: None,Stated [Primary Care Provider] - 1-2 days Goyo Christiansen MD [REFERRING] - 1-2 days Radha Acuña MD [STAFF PHYSICIAN] - 1-2 days Time of Disposition: 11:06
[2019-07-08] MEDS ORDERED: LIDOCAINE 5% PATCH TOPICAL STA (11:11)
[2019-07-08 11:28] VITALS: BP 125/75; PULSE 77; RESP 17
[2019-07-09] MEDS ORDERED: LIDOCAINE 5% PATCH TOPICAL SCH (09:00)
== END 2019-07-08 11:28 | disposition home or self-care (01) ==
LOC: EC 08:25
DX: S22.31XA Fracture of one rib, right side, initial encounter for closed fracture (principal); E11.9 Type 2 diabetes mellitus without complications; F17.200 Nicotine dependence, unspecified, uncomplicated; Z88.6 Allergy status to analgesic agent; Z88.8 Allergy status to other drugs, medicaments and biological substances; Z79.84 Long term (current) use of oral hypoglycemic drugs; Z79.899 Other long term (current) drug therapy; Z98.1 Arthrodesis status; W19.XXXA Unspecified fall, initial encounter
CPT/HCPCS: 94640; 71046; 99284; 96372 ×2; J2270; J1885

== ENCOUNTER 2019-07-13 03:17 | Emergency (ER) | payer MEDICARE, OTHER ==
[2019-07-13 03:31] VITALS: RESP 20
[2019-07-13] MEDS ORDERED: LIDOCAINE 5% PATCH TOPICAL STA (03:47)
--- NOTE | 2019-07-13 03:50 | ED ---
Recheck HPI - General Chief Complaint: Recheck/Abnormal Lab/Rx Stated Complaint: rib pain Time Seen by Provider: 07/13/19 03:39 Source: patient Mode of arrival: ambulatory Limitations: no limitations - History of Present Illness Initial Comments: Kumar is a 63-year-old gentleman who presents to the emergency department today for evaluation of right-sided chest wall pain. Patient reports that approximately 2 weeks ago he had a fall in which he broke his ribs, he states he's been treating the pain with oxycodone. Patient states that this morning he had a coughing fit and is now having worsening pain in his right-sided ribs. Motrin due to ALLERGIES. - Related Data Home Medications Medication Instructions Recorded Confirmed glipiZIDE [Glucotrol] 10 mg PO BID 03/12/15 07/08/19 Omeprazole [PriLOSEC] 10 mg PO DAILY 03/27/15 07/08/19 oxyCODONE HCL [OxyIR] 5 mg PO Q2H PRN 07/04/19 07/08/19 Multivitamins, Thera [Multivitamin 1 tab PO DAILY 07/08/19 07/08/19 (formulary)] Previous Rx's Medication Instructions Recorded Ibuprofen [Motrin] 600 mg PO Q8HR PRN #20 tab 07/04/19 Orphenadrine [Norflex] 100 mg PO Q12H #12 tablet.er 07/04/19 Albuterol Inhaler [Ventolin Hfa 1 - 2 puff INHALATION RT-Q6H PRN 07/08/19 Inhaler] #1 inhaler Cyclobenzaprine [Flexeril] 10 mg PO TID #12 tab 07/08/19 Lidocaine 5% Patch [Lidoderm 5% 1 patch TOPICAL DAILY #30 patch 07/08/19 Patch] Cyclobenzaprine [Flexeril] 10 mg PO TID #30 tab 07/13/19 Allergies Allergy/AdvReac Type Severity Reaction Status Date / Time aspirin Allergy Itching Verified 07/13/19 03:31 ibuprofen [From Motrin] Allergy Itching Verified 07/13/19 03:31 methocarbamol [From Robaxin] Allergy Itching Verified 07/13/19 03:31 Review of Systems ROS Statement: Those systems with pertinent positive or pertinent negative responses have been documented in the HPI. ROS Other: All systems not noted in ROS Statement are negative. Past Medical History Past Medical History: Diabetes Mellitus, Hypertension Additional Past Medical History / Comment(s): back pain History of Any Multi-Drug Resistant Organisms: None Reported Additional Past Surgical History / Comment(s): Medical Hx-Chronic back pain, c4- c6 fusion, facial surgery Past Psychological History: No Psychological Hx Reported Smoking Status: Current every day smoker Past Alcohol Use History: None Reported Past Drug Use History: None Reported General Exam - General Exam Comments Initial Comments: Physical Exam GENERAL: Appears older stated age Strong odor of cigarette smoke HENT: Normocephalic, Atraumatic. EYES: PERRL, EOMI PULMONARY: Unlabored respirations. No audible rales rhonchi or wheezing was noted. Right-sided chest wall tenderness CARDIOVASCULAR: There is a regular rate and rhythm without any murmurs gallops or rubs. ABDOMEN: Nondistended SKIN: Skin is clear with no lesions or rashes and otherwise unremarkable. : Deferred NEUROLOGIC: Patient is alert and oriented x3. Moving all extremities spontaneously MUSCULOSKELETAL: Normal extremities with adequate strength and full range of motion. No lower extremity swelling or edema. No calf tenderness. PSYCHIATRIC: Normal psychiatric evaluation. Limitations: no limitations Course Vital Signs 07/13/19 07/13/19 03:29 05:24 Temperature 98.3 F 98.7 F Pulse Rate 110 H 87 Respiratory 20 20 Rate Blood Pressure 121/77 128/54 O2 Sat by Pulse 99 99 Oximetry Medical Decision Making - Medical Decision Making Patient was seen and evaluated history was obtained patient excited repeat x- rays were ordered Lidoderm was ordered for pain Right-sided rib series confirmed in acute ninth rib fracture. This was not present on previous computed tomography scan. Patient denies any additional trauma. States that she has happened from coughing. Patient requesting repeat prescription for Flexeril as this has helped him with his pain in the past. Patient gets his from his pain management doctor states he doesn't need any prescriptions for narcotics at this time. Patient was treated with morphine and Norflex in the emergency department discharged home with Flexeril. Patient will see his pain doctor on this week. Disposition Clinical Impression: Closed rib fracture, Rib pain on right side Disposition: HOME SELF-CARE Condition: Stable Instructions (If sedation given, give patient instructions): Rib Fracture (ED) Prescriptions: Cyclobenzaprine [Flexeril] 10 mg PO TID #30 tab Is patient prescribed a controlled substance at d/c from ED?: No Referrals: [facility]inic [Primary Care Provider] - 1-2 days
--- NOTE | 2019-07-13 04:04 | XR ---
EXAMINATION TYPE: XR ribs RT w pa chest xray DATE OF EXAM: 07/13/2019 COMPARISON: 07/08/2019 HISTORY: Cough TECHNIQUE: 6 views FINDINGS: There is no heart failure nor confluent pneumonic infiltrate. Costophrenic angles are clear . There is spurring in the thoracic spine. There is no pleural effusion or pneumothorax. There is sli ght thickening of the anterior right third fourth fifth ribs consistent with old injury. There is non displaced fracture anterior right ninth rib that could be an acute fracture. IMPRESSION: No cardiopulmonary disease. Acute fracture right ninth rib.
[2019-07-13] MEDS ORDERED: MORPHINE SULFATE 4 MG/ML SYRINGE IM STA (04:19)
[2019-07-13] MEDS ORDERED: ORPHENADRINE 30 MG/ML 2 ML VIAL IM STA (04:50)
[2019-07-13 05:25] VITALS: BP 128/54; PULSE 87; TEMP 98.7
== END 2019-07-13 05:25 | disposition home or self-care (01) ==
LOC: EC 03:17
DX: S22.31XA Fracture of one rib, right side, initial encounter for closed fracture (principal); R05 Cough; E11.9 Type 2 diabetes mellitus without complications; I10 Essential (primary) hypertension; G89.29 Other chronic pain; M54.5 Low back pain; F17.200 Nicotine dependence, unspecified, uncomplicated; Z79.84 Long term (current) use of oral hypoglycemic drugs; Z79.899 Other long term (current) drug therapy; Z88.6 Allergy status to analgesic agent; Z88.8 Allergy status to other drugs, medicaments and biological substances; W19.XXXA Unspecified fall, initial encounter
CPT/HCPCS: 71101; 96372 ×2; 99283; J2270; J2360

== ENCOUNTER 2019-07-21 18:02 | Emergency (ER) | payer MEDICARE, OTHER ==
[2019-07-21 18:16] VITALS: TEMP 98.1
[2019-07-21] MEDS ORDERED: traMADol 50 MG TAB PO STA (19:31)
--- NOTE | 2019-07-21 19:35 | ED ---
General Adult HPI - General Chief complaint: GI Bleed Stated complaint: Abd pain Time Seen by Provider: 07/21/19 18:15 Source: patient, RN notes reviewed Mode of arrival: ambulatory Limitations: no limitations - History of Present Illness Initial comments: This is a 63-year-old male who presents emergency Department stating he fell 3 weeks ago and he has been having pain in his right lower back ever since per patient states he takes oxycodone for but is not helping enough. Patient states he has had no trauma since that initial incident. Patient states he has rib fractures on that side but the pain is below the rib fractures. Patient points to the lower right back above the iliac crest and below the ribs. Patient denies any difficulty breathing or shortness of breath. Patient denies any fever chills or cough. Patient denies any abdominal pain patient denies nausea vomiting diarrhea. Patient denies any hematuria or dysuria. Patient states he did have some bright red blood per rectum starting a few days ago. Patient denies any lightheadedness or dizziness. Patient denies any shortness of breath. - Related Data Home Medications Medication Instructions Recorded Confirmed glipiZIDE [Glucotrol] 10 mg PO BID 03/12/15 07/21/19 Omeprazole [PriLOSEC] 10 mg PO BID 03/27/15 07/21/19 oxyCODONE HCL [OxyIR] 5 mg PO Q6H PRN 07/04/19 07/21/19 Multivitamins, Thera [Multivitamin 1 tab PO DAILY 07/08/19 07/21/19 (formulary)] Blood Pressure(Unknown) 1 tab PO DAILY 07/21/19 07/21/19 Previous Rx's Medication Instructions Recorded Albuterol Inhaler [Ventolin Hfa 1 - 2 puff INHALATION RT-Q6H PRN 07/08/19 Inhaler] #1 inhaler Lidocaine 5% Patch [Lidoderm 5% 1 patch TOPICAL DAILY #30 patch 07/08/19 Patch] Allergies Allergy/AdvReac Type Severity Reaction Status Date / Time aspirin Allergy Itching Verified 07/21/19 19:41 ibuprofen [From Motrin] Allergy Itching Verified 07/21/19 19:41 methocarbamol [From Robaxin] Allergy Itching Verified 07/21/19 19:41 Review of Systems ROS Statement: Those systems with pertinent positive or pertinent negative responses have been documented in the HPI. ROS Other: All systems not noted in ROS Statement are negative. Past Medical History Past Medical History: Diabetes Mellitus, Hypertension Additional Past Medical History / Comment(s): back pain History of Any Multi-Drug Resistant Organisms: None Reported Additional Past Surgical History / Comment(s): Medical Hx-Chronic back pain, c4-c6 fusion, facial surgery Past Psychological History: No Psychological Hx Reported Smoking Status: Current every day smoker Past Alcohol Use History: None Reported Past Drug Use History: None Reported General Exam - General Exam Comments Initial Comments: GENERAL: Patient is well-developed and well-nourished. Patient is nontoxic and well- hydrated and is in mild distress. ENT: Neck is soft and supple. No significant lymphadenopathy is noted. Oropharynx is clear. Moist mucous membranes. Neck has full range of motion without eliciting any pain. EYES: The sclera were anicteric and conjunctiva were pink and moist. Extraocular movements were intact and pupils were equal round and reactive to light. Eyelids were unremarkable. PULMONARY: Unlabored respirations. Good breath sounds bilaterally. No audible rales rhonchi or wheezing was noted. CARDIOVASCULAR: There is a regular rate and rhythm without any murmurs gallops or rubs. Patient has right sided rib pain laterally. ABDOMEN: Soft and nontender with normal bowel sounds. SKIN: Skin is clear with no lesions or rashes and otherwise unremarkable. RECTAL: On rectal exam there was no masses and stool was brown NEUROLOGIC: Patient is alert and oriented x3. Cranial nerves II through XII are grossly intact. Motor and sensory are also intact. Normal speech, volume and content. Symmetrical smile. MUSCULOSKELETAL: Normal extremities with adequate strength and full range of motion. Patient has tenderness to the right lower back between the ribs and the iliac crest. No signs of trauma. No signs of swelling no signs or redness. LYMPHATICS: No significant lymphadenopathy is noted PSYCHIATRIC: Normal psychiatric evaluation. Limitations: no limitations Course Vital Signs 07/21/19 07/21/19 18:14 19:51 Temperature 98.1 F Pulse Rate 110 H 87 Respiratory 22 18 Rate Blood Pressure 123/67 118/72 O2 Sat by Pulse 98 100 Oximetry Medical Decision Making - Medical Decision Making Patient was given Toradol because he had had it in June with no reaction. Patient was also given Ultram Patient's guaiac was positive. The patient still is having significant right lower back pain. I spoke to Dr. mccord he agreed to admit the patient admitted the patient wrote admitting orders - Lab Data Result diagrams: 07/21/19 19:46 07/21/19 19:46 Lab Results 07/21/19 07/21/19 07/21/19 Range/Units 19:46 19:46 19:46 WBC 6.7 (3.8-10.6) k/uL RBC 3.87 L (4.30-5.90) m/uL Hgb 12.7 L (13.0-17.5) gm/dL Hct 36.3 L (39.0-53.0) % MCV 93.8 (80.0-100.0) fL MCH 32.8 (25.0-35.0) pg MCHC 35.0 (31.0-37.0) g/dL RDW 12.3 (11.5-15.5) % Plt Count 191 (150-450) k/uL Neutrophils % 68 % Lymphocytes % 19 % Monocytes % 7 % Eosinophils % 3 % Basophils % 1 % Neutrophils # 4.6 (1.3-7.7) k/uL Lymphocytes # 1.3 (1.0-4.8) k/uL Monocytes # 0.5 (0-1.0) k/uL Eosinophils # 0.2 (0-0.7) k/uL Basophils # 0.1 (0-0.2) k/uL Sodium 137 (137-145) mmol/L Potassium 4.0 (3.5-5.1) mmol/L Chloride 104 (98-107) mmol/L Carbon Dioxide 26 (22-30) mmol/L Anion Gap 7 mmol/L BUN 20 (9-20) mg/dL Creatinine 0.86 (0.66-1.25) mg/dL Est GFR (CKD-EPI)AfAm >90 (>60 ml/min/1.73 sqM) Est GFR (CKD-EPI)NonAf >90 (>60 ml/min/1.73 sqM) Glucose 56 L (74-99) mg/dL Calcium 9.0 (8.4-10.2) mg/dL Total Bilirubin 0.6 (0.2-1.3) mg/dL AST 39 (17-59) U/L ALT 33 (21-72) U/L Alkaline Phosphatase 54 (38-126) U/L Total Protein 6.6 (6.3-8.2) g/dL Albumin 4.0 (3.5-5.0) g/dL Stool Occult Blood Positive (Negative) Disposition Clinical Impression: Rectal bleeding, Lower back pain Disposition: ADMITTED IP TO THIS HOSP Referrals: None,Stated [Primary Care Provider] - 1-2 days Time of Disposition: 20:39
[2019-07-21] MEDS ORDERED: KETOROLAC 60 MG/2 ML VIAL IVP STA (19:37)
[2019-07-21 19:52] VITALS: RESP 18
[2019-07-21 20:02] LABS: ALT 33 U/L (21-72); AST 39 U/L (17-59); African American GFR (CKD) >90 (>60 ml/min/1.73 sqM); Alkaline Phosphatase 54 U/L (38-126); Anion Gap 7 mmol/L; Blood Urea Nitrogen 20 mg/dL (9-20); Carbon Dioxide 26 mmol/L (22-30); Chloride 104 mmol/L (98-107); Glucose 56 mg/dL (74-99); Sodium 137 mmol/L (137-145); Total Bilirubin 0.6 mg/dL (0.2-1.3); Total Protein 6.6 g/dL (6.3-8.2)
[2019-07-21 20:10] LABS: Basophils # (A) 0.1 k/uL (0-0.2); Basophils % (A) 1 %; Eosinophils # (A) 0.2 k/uL (0-0.7); Eosinophils % (A) 3 %; HCT 36.3 % (39.0-53.0); HGB 12.7 gm/dL (13.0-17.5); Lymphocytes # (A) 1.3 k/uL (1.0-4.8); Lymphocytes % (A) 19 %; MCH 32.8 pg (25.0-35.0); MCV 93.8 fL (80.0-100.0); Mean Platelet Volume 6.9; Monocytes # (A) 0.5 k/uL (0-1.0); Monocytes % (A) 7 %; Neutrophils # (A) 4.6 k/uL (1.3-7.7); Neutrophils % (A) 68 %; Platelet Count 191 k/uL (150-450); RBC 3.87 m/uL (4.30-5.90); RDW 12.3 % (11.5-15.5); WBC 6.7 k/uL (3.8-10.6)
[2019-07-21] MEDS ORDERED: SODIUM CHLORIDE 0.9% 1,000 ML IV ONE ×2 (20:40→20:41)
[2019-07-21 21:26] LABS: Glucose,Whole Blood 49 mg/dL (75-99)
--- NOTE | 2019-07-21 21:27 | P.HPIM ---
History of Present Illness H&P Date: 07/21/19 Chief Complaint: Lower back pain abdominal pain, The patient is a 63-year-old male the past medical history of essential hypertension type 2 diabetes, who presented to the ER with chief complaint of lower back pain abdominal pain and blood in the stool. The patient reports approximately 3 weeks ago he fell off [employer] truck and sustained traumatic fractures to his rib and had casting of his right upper extremity x- rays at that time showed old fracture of the base of the right fifth metacarpal. Today the patient is complaining of right lower back located between the right above the iliac crest pain despite taking his oxycodone. The patient also mentions some bright red blood per rectum starting a few days ago, he reports a history of hemorrhoids have been bleeding intermittently for a few days per month. He also reports some constipation. Previously the patient had a CT abdomen and pelvis 07/04 that showed degenerative changes within the spinous small periumbilical hernia containing fat. In the ER the patient had workup including a Hemoccult that was positive hemoglobin was 12.7. The patient was given a liter of fluids and Toradol and recommended for admission. On my evaluation the patient was surprised that he was being admitted and did not think he needed to be admitted he as he has had these issues of intermittent bleeding hemorrhoids for years. Review of Systems Pertinent positives per HPI all other review of system was otherwise negative Past Medical History Past Medical History: Diabetes Mellitus, Hypertension Additional Past Medical History / Comment(s): back pain History of Any Multi-Drug Resistant Organisms: None Reported Additional Past Surgical History / Comment(s): Medical Hx-Chronic back pain, c4- c6 fusion, facial surgery Past Psychological History: No Psychological Hx Reported Smoking Status: Current every day smoker Past Alcohol Use History: None Reported Past Drug Use History: None Reported Medications and Allergies Home Medications Medication Instructions Recorded Confirmed Type glipiZIDE [Glucotrol] 10 mg PO BID 03/12/15 07/21/19 History Omeprazole [PriLOSEC] 10 mg PO BID 03/27/15 07/21/19 History oxyCODONE HCL [OxyIR] 5 mg PO Q6H PRN 07/04/19 07/21/19 History Albuterol Inhaler [Ventolin Hfa 1 - 2 puff INHALATION RT-Q6H PRN 07/08/19 07/21/19 Rx Inhaler] #1 inhaler Lidocaine 5% Patch [Lidoderm 5% 1 patch TOPICAL DAILY #30 patch 07/08/19 07/21/19 Rx Patch] Multivitamins, Thera [Multivitamin 1 tab PO DAILY 07/08/19 07/21/19 History (formulary)] Blood Pressure(Unknown) 1 tab PO DAILY 07/21/19 07/21/19 History Hydrocortisone Acetate [Anusol-Hc] 25 mg RC BID #28 supp.rect 07/21/19 Rx Polyethylene Glycol 3350 [Miralax] 17 gm PO DAILY #30 packet 07/21/19 Rx Allergies Allergy/AdvReac Type Severity Reaction Status Date / Time aspirin Allergy Itching Verified 07/21/19 19:41 ibuprofen [From Motrin] Allergy Itching Verified 07/21/19 19:41 methocarbamol [From Robaxin] Allergy Itching Verified 07/21/19 19:41 Physical Exam Vitals: Vital Signs Temp Pulse Resp BP Pulse Ox 07/21/19 20:42 80 18 96/56 97 07/21/19 19:51 87 18 118/72 100 07/21/19 18:14 98.1 F 110 H 22 123/67 98 Intake and Output 07/21/19 07/21/19 07/21/19 06:59 14:59 22:59 Other: Weight 79.379 kg Constitutional: No acute distress, conversant, pleasant Eyes: Anicteric sclerae, moist conjunctiva, no lid-lag, PERRLA ENMT: NC/AT,Oropharynx clear, no erythema, exudates Neck:Supple, FROM, no masses, or JVD, No carotid bruits; No thyromegaly Lungs: Clear to auscultation, Clear to percussion, Normal respiratory effort, no accessory muscle use Cardiovascular: Heart regular in rate and rhythm, No murmurs, gallops, or rubs no peripheral edema Abdominal: Soft Nontender, nom distended, no guarding, no rebound or rigidity, Normoactive bowel sounds No hepatomegaly, No splenomegaly, No palpable mass No abdominal wall hernia noted Skin: Normal temperature, tone, texture, turgor, No induration No subcutaneous nodules, No rash, lesions, No ulcers Extremities: Right upper extremity wrist in cast MSK: Tenderness in her lower back and ribs and the iliac crest Psychiatric: Alert and oriented to person, place and time, Appropriate affect Intact judgement Neuro: Muscles Strength 5/5 in all 4 extremities, Sensation to light touch lewis sly present throughout, Cranial nerves II-XII grossly intact. No focal sensory deficits Results CBC & Chem 7: 07/21/19 19:46 07/21/19 19:46 Labs: Abnormal Lab Results - Last 24 Hours (Table) 07/21/19 07/21/19 Range/Units 19:46 19:46 RBC 3.87 L (4.30-5.90) m/uL Hgb 12.7 L (13.0-17.5) gm/dL Hct 36.3 L (39.0-53.0) % Glucose 56 L (74-99) mg/dL Assessment and Plan (1) Lower back pain Current Visit: Yes Status: Acute Code(s): M54.5 - LOW BACK PAIN SNOMED Code(s): 096002896 (2) Occult blood positive stool Current Visit: Yes Status: Acute Code(s): R19.5 - OTHER FECAL ABNORMALITIES SNOMED Code(s): 88755011 (3) Hemorrhoids Current Visit: Yes Status: Acute Code(s): K64.9 - UNSPECIFIED HEMORRHOIDS SNOMED Code(s): 72022237 (4) Mild anemia Current Visit: Yes Status: Acute Code(s): D64.9 - ANEMIA, UNSPECIFIED SNOMED Code(s): 199134382 (5) Essential hypertension Current Visit: Yes Status: Acute Code(s): I10 - ESSENTIAL (PRIMARY) HYPERTENSION SNOMED Code(s): 03763167 Plan: Patient was seen and examined in the ER he has history of hemorrhoids and had a positive Hemoccult, This BUN was normal. Patient was initially tachycardic like ly secondary to pain this resolved after Toradol and IV fluids. Hemoglobin was slightly diminished at 12.7 and the patient appeared hemodynamically stable, Review of his previous CT abdomen and pelvis done approximately 2 weeks ago was negative for any acute intra-abdominal pathology, he was subsequently discharged home and instructed to follow-up with his PCP, prescriptions for Anusol HC and MiraLAX were sent to his pharmacy for pickup.
[2019-07-21 21:42] VITALS: BP 119/73; PULSE 87
[2019-07-21 21:42] LABS: Glucose,Whole Blood 60 mg/dL (75-99)
[2019-07-21 22:05] LABS: Glucose,Whole Blood 102 mg/dL (75-99)
[2019-07-22] MEDS ORDERED: KETOROLAC 30 MG/ML 1 ML VIAL IVP SCH
== END 2019-07-21 22:15 | disposition other institution (70) ==
LOC: EC 18:02 → 3NMEDONC 20:40 → UNDOADMOB 20:40 → EC 22:15
DX: K62.5 Hemorrhage of anus and rectum (principal); M54.5 Low back pain; R07.81 Pleurodynia; E11.9 Type 2 diabetes mellitus without complications; I10 Essential (primary) hypertension; F17.200 Nicotine dependence, unspecified, uncomplicated; Z88.6 Allergy status to analgesic agent; Z88.8 Allergy status to other drugs, medicaments and biological substances; Z79.84 Long term (current) use of oral hypoglycemic drugs; Z79.899 Other long term (current) drug therapy; Z87.828 Personal history of other (healed) physical injury and trauma; Z98.1 Arthrodesis status; W19.XXXA Unspecified fall, initial encounter
CPT/HCPCS: 36415; 80053; 85025; 82272; 99284; 96374; 96361 ×2; J1885

== ENCOUNTER 2019-08-04 08:14 | Emergency (ER) | payer MEDICARE, OTHER ==
[2019-08-04 08:23] VITALS: TEMP 98
[2019-08-04] MEDS ORDERED: SODIUM CHLORIDE 0.9% 1,000 ML IV STA (08:37)
[2019-08-04] MEDS ORDERED: KETOROLAC 30 MG/ML 1 ML VIAL IVP STA (08:37)
--- NOTE | 2019-08-04 08:55 | ED ---
General Adult HPI - General Chief complaint: Back Pain/Injury Stated complaint: poss kidney stones Time Seen by Provider: 08/04/19 08:25 Source: patient, RN notes reviewed Mode of arrival: ambulatory Limitations: no limitations - History of Present Illness Initial comments: 63-year-old male presents emergency Department chief complaint of right flank pa in. Patient states has been going for a while states that he did have rib fractures that happened on 06/27/[address] Pate. Patient multiple rib fractures are healing. Patient states he has consistent pain and a concern that he may have some underlying gallbladder disease or kidney stone. Patient states that he is currently taking oxycodone it's not helping his pain. Patient denies any nausea, vomiting diarrhea constipation no dysuria no hematuria no fevers or chills no prior abdominal surgeries. - Related Data Home Medications Medication Instructions Recorded Confirmed glipiZIDE [Glucotrol] 10 mg PO BID 03/12/15 08/04/19 Omeprazole [PriLOSEC] 10 mg PO BID 03/27/15 08/04/19 oxyCODONE HCL [OxyIR] 5 mg PO Q6H PRN 07/04/19 08/04/19 Multivitamins, Thera [Multivitamin 1 tab PO DAILY 07/08/19 08/04/19 (formulary)] Previous Rx's Medication Instructions Recorded Albuterol Inhaler [Ventolin Hfa 1 - 2 puff INHALATION RT-Q6H PRN 07/08/19 Inhaler] #1 inhaler Lidocaine 5% Patch [Lidoderm 5% 1 patch TOPICAL DAILY #30 patch 07/08/19 Patch] Hydrocortisone Acetate [Anusol-Hc] 25 mg RC BID #28 supp.rect 07/21/19 Polyethylene Glycol 3350 [Miralax] 17 gm PO DAILY #30 packet 07/21/19 Allergies Allergy/AdvReac Type Severity Reaction Status Date / Time aspirin Allergy Itching Verified 08/04/19 09:34 ibuprofen [From Motrin] Allergy Itching Verified 08/04/19 09:34 methocarbamol [From Robaxin] Allergy Itching Verified 08/04/19 09:34 Review of Systems ROS Statement: Those systems with pertinent positive or pertinent negative responses have been documented in the HPI. ROS Other: All systems not noted in ROS Statement are negative. Past Medical History Past Medical History: Diabetes Mellitus, Hypertension Additional Past Medical History / Comment(s): back pain History of Any Multi-Drug Resistant Organisms: None Reported Additional Past Surgical History / Comment(s): Medical Hx-Chronic back pain, c4- c6 fusion, facial surgery Past Psychological History: No Psychological Hx Reported Smoking Status: Current every day smoker Past Alcohol Use History: None Reported Past Drug Use History: None Reported General Exam Limitations: no limitations General appearance: alert, in no apparent distress Head exam: Present: atraumatic, normocephalic, normal inspection Eye exam: Present: normal appearance, PERRL, EOMI. Absent: scleral icterus, conjunctival injection, periorbital swelling ENT exam: Present: normal exam, mucous membranes moist Neck exam: Present: normal inspection, full ROM. Absent: tenderness, meningismus, lymphadenopathy Respiratory exam: Present: normal lung sounds bilaterally. Absent: respiratory distress, wheezes, rales, rhonchi, stridor Cardiovascular Exam: Present: regular rate, normal rhythm, normal heart sounds. Absent: systolic murmur, diastolic murmur, rubs, gallop, clicks GI/Abdominal exam: Present: soft, normal bowel sounds. Absent: distended, tenderness, guarding, rebound, rigid Neurological exam: Present: alert, oriented X3, CN II-XII intact Skin exam: Present: warm, dry, intact, normal color. Absent: rash Course Vital Signs 08/04/19 08:19 Temperature 98 F Pulse Rate 105 H Respiratory 18 Rate Blood Pressure 134/75 O2 Sat by Pulse 97 Oximetry Medical Decision Making - Medical Decision Making Patient sent in for possible kidney stone. Patient does have a stable nonobstructing stone in the right kidney. Labs unremarkable. I did feel this is just chronic back pain. Patient will be discharged follow-up with his back surgeon. - Lab Data Result diagrams: 08/04/19 09:06 08/04/19 09:06 Lab Results 08/04/19 08/04/19 08/04/19 Range/Units 09:06 09:06 11:17 WBC 6.7 (3.8-10.6) k/uL RBC 4.06 L (4.30-5.90) m/uL Hgb 13.3 (13.0-17.5) gm/dL Hct 38.3 L (39.0-53.0) % MCV 94.4 (80.0-100.0) fL MCH 32.7 (25.0-35.0) pg MCHC 34.7 (31.0-37.0) g/dL RDW 12.4 (11.5-15.5) % Plt Count 220 (150-450) k/uL Neutrophils % 61 % Lymphocytes % 30 % Monocytes % 5 % Eosinophils % 3 % Basophils % 0 % Neutrophils # 4.0 (1.3-7.7) k/uL Lymphocytes # 2.0 (1.0-4.8) k/uL Monocytes # 0.3 (0-1.0) k/uL Eosinophils # 0.2 (0-0.7) k/uL Basophils # 0.0 (0-0.2) k/uL Sodium 140 (137-145) mmol/L Potassium 3.9 (3.5-5.1) mmol/L Chloride 107 (98-107) mmol/L Carbon Dioxide 27 (22-30) mmol/L Anion Gap 6 mmol/L BUN 21 H (9-20) mg/dL Creatinine 0.77 (0.66-1.25) mg/dL Est GFR (CKD-EPI)AfAm >90 (>60 ml/min/1.73 sqM) Est GFR (CKD-EPI)NonAf >90 (>60 ml/min/1.73 sqM) Glucose 91 (74-99) mg/dL Calcium 9.3 (8.4-10.2) mg/dL Total Bilirubin 0.3 (0.2-1.3) mg/dL AST 22 (17-59) U/L ALT 26 (21-72) U/L Alkaline Phosphatase 52 (38-126) U/L Total Protein 6.5 (6.3-8.2) g/dL Albumin 3.9 (3.5-5.0) g/dL Amylase 31 (30-110) U/L Lipase 162 (23-300) U/L Urine Color Yellow Urine Appearance Cloudy (Clear) Urine pH 6.0 (5.0-8.0) Ur Specific Accident 1.030 (1.001-1.035) Urine Protein 1+ H (Negative) Urine Glucose (UA) Negative (Negative) Urine Ketones Trace H (Negative) Urine Blood Negative (Negative) Urine Nitrite Negative (Negative) Urine Bilirubin Negative (Negative) Urine Urobilinogen 6.0 (<2.0) mg/dL Ur Leukocyte Esterase Trace H (Negative) Urine RBC 3 (0-5) /hpf Urine WBC 1 (0-5) /hpf Calcium Oxalate Crystal Few H (None) /hpf Urine Bacteria Rare H (None) /hpf Hyaline Casts 7 H (0-2) /lpf Urine Mucus Moderate H (None) /hpf Disposition Clinical Impression: Lumbar back pain Disposition: HOME SELF-CARE Condition: Stable Instructions (If sedation given, give patient instructions): Acute Low Back Pain (ED) Additional Instructions: Please return to the Emergency Department if symptoms worsen or any other concerns. Is patient prescribed a controlled substance at d/c from ED?: No Referrals: None,Stated [Primary Care Provider] - 1-2 days Time of Disposition: 11:48
--- NOTE | 2019-08-04 09:38 | CT ---
EXAMINATION TYPE: CT abdomen pelvis wo con DATE OF EXAM: 08/04/2019 HISTORY: Right flank pain; History of kidney stones (30 [address]) [address] DLP: 606.8 mGycm. Automated Exposure Control for Dose Reduction was Utilized. TECHNIQUE: CT scan of the abdomen and pelvis is performed without oral or IV contrast. COMPARISON: CT abdomen and pelvis July 04, 2019 FINDINGS: Within the limitations of a non-contrast study, the following observations are made. LUNG BASES: Redemonstration of healing or healed anterolateral right T6 rib fracture axial image 6. LIVER/GB: Round hypodense lesions scattered throughout the liver likely reflects thin walled simple c ysts. Low density intraluminal gallstones are redemonstrated. No new surrounding inflammatory change. PANCREAS: Moderate generalized fat replaced atrophy most prominent involving inferior head and uncina te process. SPLEEN: No significant abnormality is seen. ADRENALS: No significant abnormality is seen. KIDNEYS: Stable 4 mm calculus upper pole of the right kidney coronal image 59. No hydronephrosis or o bstructing ureteral calculi bilaterally. No intraluminal calculi or bladder. Few scattered adjacent p elvic phlebolith more prominent on the right side redemonstrated. BOWEL: Low-lying cecum into the right pelvis. Normal-appearing appendix is seen. No suspicious bowel dilatation. GENITAL ORGANS: No gross abnormality seen. LYMPH NODES: No greater than 1cm abdominal or pelvic lymph nodes are appreciated. OSSEOUS STRUCTURES: Moderate multilevel spurring and disc space narrowing throughout the lumbar spine . Facet arthropathy lower lumbar levels. OTHER: Small fat-containing umbilical hernia redemonstrated. IMPRESSION: No new or acute findings identified. Stable nonobstructing 4 mm right renal calculus.
[2019-08-04 09:44] LABS: Basophils % (A) 0 %; Eosinophils # (A) 0.2 k/uL (0-0.7); Eosinophils % (A) 3 %; HCT 38.3 % (39.0-53.0); HGB 13.3 gm/dL (13.0-17.5); Lymphocytes % (A) 30 %; MCH 32.7 pg (25.0-35.0); MCHC 34.7 g/dL (31.0-37.0); MCV 94.4 fL (80.0-100.0); Mean Platelet Volume 6.2; Monocytes # (A) 0.3 k/uL (0-1.0); Monocytes % (A) 5 %; Neutrophils % (A) 61 %; Platelet Count 220 k/uL (150-450); RBC 4.06 m/uL (4.30-5.90); RDW 12.4 % (11.5-15.5); WBC 6.7 k/uL (3.8-10.6)
[2019-08-04 10:12] LABS: ALT 26 U/L (21-72); AST 22 U/L (17-59); African American GFR (CKD) >90 (>60 ml/min/1.73 sqM); Albumin 3.9 g/dL (3.5-5.0); Alkaline Phosphatase 52 U/L (38-126); Amylase 31 U/L (30-110); Anion Gap 6 mmol/L; Blood Urea Nitrogen 21 mg/dL (9-20); Calcium 9.3 mg/dL (8.4-10.2); Carbon Dioxide 27 mmol/L (22-30); Chloride 107 mmol/L (98-107); Glucose 91 mg/dL (74-99); Potassium 3.9 mmol/L (3.5-5.1); Sodium 140 mmol/L (137-145); Total Bilirubin 0.3 mg/dL (0.2-1.3); Total Protein 6.5 g/dL (6.3-8.2)
[2019-08-04] MEDS ORDERED: ORPHENADRINE 30 MG/ML 2 ML VIAL IVP STA (11:31)
[2019-08-04] MEDS ORDERED: HYDROmorphone 1 MG/ML 1 ML SYRINGE IVP STA (11:31)
[2019-08-04 11:41] LABS: Appearance,Urine Cloudy (Clear); Bacteria,Urine Rare /hpf; Bilirubin,Urine Negative (Negative); Blood,Urine Negative (Negative); Calcium Oxalate Crystals,Urine Few /hpf; Color,Urine Yellow; Glucose,Urine (UA) Negative (Negative); Hyaline Casts,Urine 7 /lpf (0-2); Ketones,Urine Trace (Negative); Leukocyte Esterase,Urine Trace (Negative); Mucus,Urine Moderate /hpf; Nitrite,Urine Negative (Negative); Protein,Urine 1+ (Negative); RBC,Urine 3 /hpf (0-5)
[2019-08-04 12:16] VITALS: BP 135/76; PULSE 71; RESP 15
== END 2019-08-04 12:17 | disposition home or self-care (01) ==
LOC: EC 08:14
DX: M54.5 Low back pain (principal); G89.29 Other chronic pain; N20.0 Calculus of kidney; E11.9 Type 2 diabetes mellitus without complications; I10 Essential (primary) hypertension; F17.200 Nicotine dependence, unspecified, uncomplicated; Z79.84 Long term (current) use of oral hypoglycemic drugs; Z79.899 Other long term (current) drug therapy; Z88.6 Allergy status to analgesic agent; Z88.8 Allergy status to other drugs, medicaments and biological substances
CPT/HCPCS: 36415; 80053; 82150; 83690; 85025; 81001; 74176; 99284; 96374; 96375 ×2; 96361; J2360; J1885; J1170

== ENCOUNTER 2019-08-08 07:39 | Emergency (ER) | payer MEDICARE, OTHER ==
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
--- NOTE | 2019-08-08 08:56 | CT ---
EXAMINATION TYPE: CT brain wo con DATE OF EXAM: 08/08/2019 COMPARISON: Previous study dated 07/04/2019. HISTORY: URRUTIA CT DLP: 1090.4 mGycm Automated exposure control for dose reduction was used. FINDINGS: Central structures are midline. There is no evidence of hydrocephalus. No acute focal lesion, mass ef fect or midline shift is seen. I do not see evidence of intracranial blood. Visualized portions of the paranasal sinuses and mastoids are clear. The bony calvarium is intact. IMPRESSION: NO ACUTE INTRACRANIAL ABNORMALITY.
[2019-08-08] MEDS ORDERED: KETOROLAC 60 MG/2 ML VIAL IM STA (09:45)
[2019-08-08 10:18] VITALS: BP 102/64; PULSE 83; RESP 20; TEMP 98
== END 2019-08-08 10:44 | disposition home or self-care (01) ==
LOC: EC 07:39
DX: G89.29 Other chronic pain (principal); R51 Headache; S22.39XA Fracture of one rib, unspecified side, initial encounter for closed fracture; F17.200 Nicotine dependence, unspecified, uncomplicated; E11.9 Type 2 diabetes mellitus without complications; I10 Essential (primary) hypertension; Z79.1 Long term (current) use of non-steroidal anti-inflammatories (NSAID); Z79.84 Long term (current) use of oral hypoglycemic drugs; Z79.51 Long term (current) use of inhaled steroids; Z79.899 Other long term (current) drug therapy; Z88.6 Allergy status to analgesic agent; Z88.8 Allergy status to other drugs, medicaments and biological substances; W18.09XA Striking against other object with subsequent fall, initial encounter
CPT/HCPCS: 70450; 99284; 96372; J1885

== ENCOUNTER → 2019-08-10 | Outpatient (CLI) | payer MEDICARE, OTHER ==
--- NOTE | 2019-08-10 13:37 | MR ---
EXAMINATION TYPE: MR cervical spine wo/w con DATE OF EXAM: 08/10/2019 COMPARISON: Cervical spine CT 02/22/2015 HISTORY: Neck pain TECHNIQUE: Multiplanar, multisequence images of the cervical spine were acquired utilizing 7.5 mL intravenous Ga davist gadolinium contrast. Diffusion weighted imaging was performed. C2-C3: No evidence for degenerative disc disease. No disc bulge/herniation or protrusion. No Canal stenosis. Foramina are patent bilaterally. C3-C4: No evidence for degenerative disc disease. No disc bulge/herniation or protrusion. No Canal stenosis. Foramina are patent bilaterally. C4-C5: No evidence for degenerative disc disease. No disc bulge/herniation or protrusion. No Canal stenosis. Foramina are patent bilaterally. C5-C6: Disc spaces are obliterated post fusion. No significant spinal stenosis or foraminal encroachm ent. C6-C7: Posterior broad-based disc bulge causes minimal anterior mass effect on the thecal sac. Suspec t some mild foraminal encroachment right greater than left due to uncovertebral joint hypertrophy. Th ere is some local artifact due to patient's hardware. C7-T1: Circumferential disc bulge causes minimal anterior mass effect on the thecal sac. No significa nt central stenosis or foraminal encroachment. Cervical segments are intact. There is normal alignment. Cervical spinal cord is of normal signal. Craniovertebral junction relationships are within normal limits. Hypertrophic changes along the ant erior margins of the cervical vertebral bodies may be indicative of diffuse idiopathic skeletal hyper ostosis. Some loss of disc height signal at C4-5, patient is status post anterior cervical fusion C5- 6. No significant spinal stenosis. No abnormal enhancement following contrast menstruation. IMPRESSION: Postop changes. No sizable disc herniation.
== END | disposition home or self-care (01) ==
LOC: RADMRIMAIN 08:41
PROVIDERS: ATTEND Orthopaedic Surgery Orthopaedic Surgery of the Spine
DX: M54.2 Cervicalgia (principal); M54.12 Radiculopathy, cervical region; M25.78 Osteophyte, vertebrae; M79.12 Myalgia of auxiliary muscles, head and neck; R53.1 Weakness; R29.2 Abnormal reflex; F17.218 Nicotine dependence, cigarettes, with other nicotine-induced disorders; Z98.1 Arthrodesis status; Z98.890 Other specified postprocedural states
CPT/HCPCS: 72156; A9585

== ENCOUNTER 2019-08-13 05:41 | Emergency (ER) | payer MEDICARE, OTHER ==
[2019-08-13 05:52] VITALS: TEMP 98.2
[2019-08-13] MEDS ORDERED: LORazepam 1 MG TAB PO STA (06:25)
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
[2019-08-13 07:19] LABS: Amphetamine Screen,Urine Not Detected (NotDetected); Barbiturate Screen,Urine Not Detected (NotDetected); Benzodiazepines Screen,Urine Not Detected (NotDetected); Cocaine Screen,Urine Not Detected (NotDetected); Methadone Screen, Urine Not Detected (NotDetected); Opiate Screen,Urine Not Detected (NotDetected); Oxycodone Screen, Urine Detected (NotDetected); Phencyclidine Screen,Urine Not Detected (NotDetected); Tricyclic Antidepressant,Urine Not Detected (NotDetected); Urn Cannabinoid Scrn Not Detected (NotDetected)
[2019-08-13 10:32] VITALS: BP 101/65; PULSE 82; RESP 18
== END 2019-08-13 10:52 | disposition home or self-care (01) ==
LOC: EC 05:41
DX: F41.0 Panic disorder [episodic paroxysmal anxiety] (principal); E11.9 Type 2 diabetes mellitus without complications; I10 Essential (primary) hypertension; F32.9 Major depressive disorder, single episode, unspecified; F43.10 Post-traumatic stress disorder, unspecified; F17.200 Nicotine dependence, unspecified, uncomplicated; Z79.1 Long term (current) use of non-steroidal anti-inflammatories (NSAID); Z79.84 Long term (current) use of oral hypoglycemic drugs; Z79.899 Other long term (current) drug therapy; Z88.6 Allergy status to analgesic agent; Z88.8 Allergy status to other drugs, medicaments and biological substances; Z98.1 Arthrodesis status
CPT/HCPCS: 80306; 82075; 99284

== ENCOUNTER 2019-08-14 14:41 | Emergency (ER) | payer MEDICARE, OTHER ==
[2019-08-14 14:46] VITALS: TEMP 98.1
[2019-08-14 15:43] LABS: Basophils # (A) 0.1 k/uL (0-0.2); Basophils % (A) 1 %; Eosinophils # (A) 0.1 k/uL (0-0.7); Eosinophils % (A) 1 %; HCT 40.6 % (39.0-53.0); HGB 14.1 gm/dL (13.0-17.5); Lymphocytes % (A) 16 %; MCH 32.7 pg (25.0-35.0); MCHC 34.8 g/dL (31.0-37.0); Mean Platelet Volume 6.5; Monocytes # (A) 0.6 k/uL (0-1.0); Monocytes % (A) 5 %; Neutrophils # (A) 9.5 k/uL (1.3-7.7); Neutrophils % (A) 77 %; Platelet Count 258 k/uL (150-450); RBC 4.31 m/uL (4.30-5.90); RDW 12.1 % (11.5-15.5); WBC 12.4 k/uL (3.8-10.6)
[2019-08-14 15:52] LABS: ALT 30 U/L (21-72); AST 28 U/L (17-59); African American GFR (CKD) >90 (>60 ml/min/1.73 sqM); Albumin 4.4 g/dL (3.5-5.0); Alkaline Phosphatase 64 U/L (38-126); Anion Gap 7 mmol/L; Blood Urea Nitrogen 20 mg/dL (9-20); Calcium 9.7 mg/dL (8.4-10.2); Carbon Dioxide 27 mmol/L (22-30); Chloride 104 mmol/L (98-107); Glucose 104 mg/dL (74-99); Sodium 138 mmol/L (137-145); Total Bilirubin 0.6 mg/dL (0.2-1.3); Total Protein 7.1 g/dL (6.3-8.2)
--- NOTE | 2019-08-14 15:54 | XR ---
EXAMINATION TYPE: XR chest 2V DATE OF EXAM: 08/14/2019 COMPARISON: Chest x-ray 07/13/2019 INDICATION: Syncope TECHNIQUE: Frontal and lateral views of the chest are obtained. FINDINGS: The heart size is normal. The pulmonary vasculature is normal. The lungs are clear. IMPRESSION: 1. No acute pulmonary process.
[2019-08-14 15:56] LABS: INR 0.9 (<1.2); Partial Thromboplastin Time 23.6 sec (22.0-30.0); Prothrombin Time 10.1 sec (9.0-12.0)
[2019-08-14] MEDS ORDERED: oxyCODONE-APAP 10-325MG 1 EACH TAB PO STA (16:16)
[2019-08-14 16:34] LABS: Appearance,Urine Clear (Clear); Bilirubin,Urine Negative (Negative); Blood,Urine Negative (Negative); Color,Urine Dark Yellow; Glucose,Urine (UA) Negative (Negative); Hyaline Casts,Urine 11 /lpf (0-2); Ketones,Urine Negative (Negative); Leukocyte Esterase,Urine Negative (Negative); Mucus,Urine Few /hpf; Nitrite,Urine Negative (Negative); PH, Urine 5.5 (5.0-8.0); Protein,Urine 1+ (Negative); RBC,Urine 2 /hpf (0-5); Specific Gravity,Urine 1.025 (1.001-1.035); Squamous Epithelial Cell,Urine <1 /hpf (0-4); WBC,Urine <1 /hpf (0-5)
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
[2019-08-14 16:55] LABS: Amphetamine Screen,Urine Not Detected (NotDetected); Barbiturate Screen,Urine Not Detected (NotDetected); Benzodiazepines Screen,Urine Detected (NotDetected); Cocaine Screen,Urine Not Detected (NotDetected); Methadone Screen, Urine Not Detected (NotDetected); Opiate Screen,Urine Detected (NotDetected); Oxycodone Screen, Urine Detected (NotDetected); Phencyclidine Screen,Urine Not Detected (NotDetected); Tricyclic Antidepressant,Urine Not Detected (NotDetected); Urn Cannabinoid Scrn Not Detected (NotDetected)
[2019-08-14 17:12] VITALS: BP 119/71; PULSE 112; RESP 16
== END 2019-08-14 17:19 | disposition home or self-care (01) ==
LOC: EC 14:41
DX: R55 Syncope and collapse (principal); R00.0 Tachycardia, unspecified; R80.9 Proteinuria, unspecified; G89.29 Other chronic pain; M54.9 Dorsalgia, unspecified; E11.9 Type 2 diabetes mellitus without complications; I10 Essential (primary) hypertension; F12.90 Cannabis use, unspecified, uncomplicated; F17.200 Nicotine dependence, unspecified, uncomplicated; Z79.84 Long term (current) use of oral hypoglycemic drugs; Z79.1 Long term (current) use of non-steroidal anti-inflammatories (NSAID); Z79.899 Other long term (current) drug therapy; Z88.6 Allergy status to analgesic agent; Z88.8 Allergy status to other drugs, medicaments and biological substances; Z98.1 Arthrodesis status; Z53.20 Procedure and treatment not carried out because of patient's decision for unspecified reasons
CPT/HCPCS: 36415; 71046; 80053; 80306; 81001; 84484; 85025; 85610; 85730; 93005; 99284

== ENCOUNTER 2019-08-16 23:39 | Emergency (ER) | payer MEDICARE ==
[2019-08-16 23:44] VITALS: BP 154/80; PULSE 93; RESP 18; TEMP 97.8
[2019-08-17] MEDS ORDERED: LORazepam 2 MG/ML INJ IM STA (00:33)
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
== END 2019-08-17 00:55 | disposition home or self-care (01) ==
LOC: EC 23:39
DX: G47.00 Insomnia, unspecified (principal); E11.9 Type 2 diabetes mellitus without complications; I10 Essential (primary) hypertension; G89.29 Other chronic pain; F17.200 Nicotine dependence, unspecified, uncomplicated; Z88.6 Allergy status to analgesic agent; Z88.8 Allergy status to other drugs, medicaments and biological substances; Z79.1 Long term (current) use of non-steroidal anti-inflammatories (NSAID); Z79.84 Long term (current) use of oral hypoglycemic drugs; Z79.899 Other long term (current) drug therapy; Z98.1 Arthrodesis status; Z87.828 Personal history of other (healed) physical injury and trauma
CPT/HCPCS: 99283; 96372; J2060

== ENCOUNTER 2019-08-24 12:13 | Emergency (ER) | payer MEDICARE, OTHER ==
[2019-08-24 12:19] VITALS: TEMP 97.8
[2019-08-24] MEDS ORDERED: SODIUM CHLORIDE 0.9% 1,000 ML IV STA (12:26)
[2019-08-24] MEDS ORDERED: DIAZEPAM 5 MG/ML 2 ML INJ IVP STA (13:33)
[2019-08-24] MEDS ORDERED: HYDROmorphone 1 MG/ML 1 ML SYRINGE IVP STA (13:33)
[2019-08-24 14:05] LABS: Basophils % (A) 0 %; Eosinophils # (A) 0.1 k/uL (0-0.7); Eosinophils % (A) 1 %; HCT 38.8 % (39.0-53.0); HGB 12.8 gm/dL (13.0-17.5); Lymphocytes # (A) 0.6 k/uL (1.0-4.8); Lymphocytes % (A) 10 %; MCH 31.5 pg (25.0-35.0); MCHC 32.9 g/dL (31.0-37.0); MCV 95.7 fL (80.0-100.0); Mean Platelet Volume 6.6; Monocytes # (A) 0.3 k/uL (0-1.0); Monocytes % (A) 4 %; Neutrophils # (A) 5.3 k/uL (1.3-7.7); Neutrophils % (A) 84 %; Platelet Count 222 k/uL (150-450); RBC 4.06 m/uL (4.30-5.90); RDW 12.1 % (11.5-15.5); WBC 6.3 k/uL (3.8-10.6)
[2019-08-24 14:07] LABS: ALT 19 U/L (21-72); AST 31 U/L (17-59); African American GFR (CKD) >90 (>60 ml/min/1.73 sqM); Albumin 3.9 g/dL (3.5-5.0); Alkaline Phosphatase 43 U/L (38-126); Amylase <30 U/L (30-110); Anion Gap 9 mmol/L; Blood Urea Nitrogen 16 mg/dL (9-20); Calcium 9.4 mg/dL (8.4-10.2); Carbon Dioxide 25 mmol/L (22-30); Chloride 103 mmol/L (98-107); Glucose 262 mg/dL (74-99); Sodium 137 mmol/L (137-145); Total Bilirubin 0.7 mg/dL (0.2-1.3); Total Protein 6.8 g/dL (6.3-8.2)
[2019-08-24 14:19] LABS: Potassium 5.2 mmol/L (3.5-5.1)
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
[2019-08-24 14:58] LABS: Amorphous Sediment,Urine Rare /hpf; Appearance,Urine Clear (Clear); Bilirubin,Urine Negative (Negative); Blood,Urine Negative (Negative); Color,Urine Yellow; Glucose,Urine (UA) 4+ (Negative); Hyaline Casts,Urine 3 /lpf (0-2); Ketones,Urine Negative (Negative); Leukocyte Esterase,Urine Small (Negative); Mucus,Urine Few /hpf; Nitrite,Urine Negative (Negative); Protein,Urine Trace (Negative); RBC,Urine 1 /hpf (0-5); Specific Gravity,Urine 1.022 (1.001-1.035)
[2019-08-24] MEDS ORDERED: KETOROLAC 30 MG/ML 1 ML VIAL IVP STA (15:11)
[2019-08-24 15:17] VITALS: BP 117/62; PULSE 89; RESP 14
== END 2019-08-24 16:02 | disposition home or self-care (01) ==
LOC: EC 12:13 → SUPCPDRO 12:13 → EC 16:02
DX: N20.0 Calculus of kidney (principal); G89.29 Other chronic pain; R10.9 Unspecified abdominal pain; E11.9 Type 2 diabetes mellitus without complications; I10 Essential (primary) hypertension; F17.200 Nicotine dependence, unspecified, uncomplicated; Z79.1 Long term (current) use of non-steroidal anti-inflammatories (NSAID); Z79.84 Long term (current) use of oral hypoglycemic drugs; Z79.899 Other long term (current) drug therapy; Z53.9 Procedure and treatment not carried out, unspecified reason; Z88.6 Allergy status to analgesic agent; Z88.8 Allergy status to other drugs, medicaments and biological substances
CPT/HCPCS: 36415; 80053; 82150; 83690; 85025; 81001; 99284; 96374; 96375; 96361; J3360; J1885

== ENCOUNTER 2019-08-27 04:25 | Emergency (ER) | payer MEDICARE, OTHER ==
[2019-08-27] MEDS ORDERED: LIDOCAINE 5% PATCH TOPICAL STA (04:51)
--- NOTE | 2019-08-27 05:16 | XR ---
EXAMINATION TYPE: XR ribs RT w pa chest xray DATE OF EXAM: 08/27/2019 COMPARISON: 08/14/2019 HISTORY: Rib pain TECHNIQUE: 5 views FINDINGS: Heart and mediastinum are normal. There is some mild interstitial infiltrate left lower lob e. There is no pleural effusion or pneumothorax. There is some thickening anterior right fifth rib co nsistent with old healed fracture. I see no acute rib fracture. IMPRESSION: New mild interstitial left lower lobe infiltrate compared to old exam. No acute rib fract ure seen.
--- NOTE | 2019-08-27 05:35 | ED ---
General Adult HPI - General Chief complaint: Abdominal Pain Stated complaint: Rt Rib Pain Time Seen by Provider: 08/27/19 04:27 Source: patient Mode of arrival: ambulatory Limitations: no limitations - History of Present Illness Initial comments: Kumar is a 64 yo male with PMH of chronic pain, recently patient has been suffering from worsening pain in the right ribs after a fall with rib fracture earlier in the year. Patient has been evaluated in the emergency department multiple times he's been seen by his primary care physician as well as orthop edic surgery. there was concerned that his pain may be due to a kidney stone he was also evaluated by urology. At this time patient patient is awaiting his first appointment with pain management. Patient is currently on oxycodone multiple times a day, Lidoderm patches. Previously the patient has been prescribed baclofen and he reports he's been prescribed Ativan for pain management. Patient currently out of baclofen and Ativan. Patient presents to the emergency Department today reporting that approximately 2 hours prior to arrival he had a coughing fit which is typical for him due to COPD and current cigarette smoking. Patient reports that after coughing he develop worsening pain in his right ribs. Despite being compliant with his oxycodone was severe which prompted him to come the ER for evaluation. denies any fevers or chills, he denies any productive cough. The discomfort is sharp and on the right side ribs. No left-sided pain. - Related Data Home Medications Medication Instructions Recorded Confirmed glipiZIDE [Glucotrol] 10 mg PO BID 03/12/15 08/27/19 Omeprazole [PriLOSEC] 10 mg PO BID 03/27/15 08/27/19 oxyCODONE HCL [OxyIR] 10 mg PO Q6H PRN 07/04/19 08/27/19 Multivitamins, Thera [Multivitamin 1 tab PO DAILY 07/08/19 08/27/19 (formulary)] Baclofen [Lioresal] 10 mg PO TID 08/08/19 08/27/19 Lidocaine 5% Patch [Lidoderm 5% 1 patch TOPICAL DAILY PRN 08/08/19 08/27/19 Patch] Loratadine [Claritin] 10 mg PO DAILY 08/08/19 08/27/19 Meloxicam 15 mg PO DAILY 08/08/19 08/27/19 Metoprolol Tartrate 25 mg PO DAILY 08/13/19 08/27/19 Previous Rx's Medication Instructions Recorded Albuterol Inhaler [Ventolin Hfa 1 - 2 puff INHALATION RT-Q6H PRN 07/08/19 Inhaler] #1 inhaler Hydrocortisone Acetate [Anusol-Hc] 25 mg RC BID #28 supp.rect 07/21/19 Polyethylene Glycol 3350 [Miralax] 17 gm PO DAILY #30 packet 07/21/19 LORazepam [Ativan] 1 mg PO TID 3 Days #9 tab 08/13/19 Allergies Allergy/AdvReac Type Severity Reaction Status Date / Time aspirin Allergy Itching Verified 08/24/19 12:19 ibuprofen [From Motrin] Allergy Itching Verified 08/24/19 12:19 methocarbamol [From Robaxin] Allergy Itching Verified 08/24/19 12:19 Review of Systems ROS Statement: Those systems with pertinent positive or pertinent negative responses have been documented in the HPI. ROS Other: All systems not noted in ROS Statement are negative. Past Medical History Past Medical History: Diabetes Mellitus, Hypertension Additional Past Medical History / Comment(s): back pain History of Any Multi-Drug Resistant Organisms: None Reported Past Surgical History: No Surgical Hx Reported Additional Past Surgical History / Comment(s): Medical Hx-Chronic back pain, c4- c6 fusion, facial surgery, DDD lumbar Past Psychological History: Anxiety, Depression, PTSD Smoking Status: Current every day smoker Past Alcohol Use History: None Reported Past Drug Use History: Marijuana General Exam - General Exam Comments Initial Comments: Physical Exam GENERAL: Patient is well-developed and well-nourished. Patient is nontoxic and well-hydrated and is in no distress. Strong odor of cigarette smoke HENT: Normocephalic, Atraumatic. EYES: PERRL, EOMI PULMONARY: Unlabored respirations. No audible rales rhonchi or wheezing was noted. CARDIOVASCULAR: There is a regular rate and rhythm without any murmurs gallops or rubs. ABDOMEN: Soft and nontender with normal bowel sounds. SKIN: Skin is clear with no lesions or rashes and otherwise unremarkable. Skin color changes on the fingers consistent with cigarette use : Deferred NEUROLOGIC: Patient is alert and oriented x3. Moving all extremities spontaneously MUSCULOSKELETAL: Normal extremities with adequate strength and full range of motion. No lower extremity swelling or edema. No calf tenderness. PSYCHIATRIC: Helpless affect Limitations: no limitations Course Vital Signs 08/27/19 04:30 Temperature 97.9 F Pulse Rate 94 Respiratory 20 Rate Blood Pressure 148/81 O2 Sat by Pulse 97 Oximetry Medical Decision Making - Medical Decision Making The patient was seen and evaluated, history is obtained from the patient Chest x-ray with rib series was ordered to evaluate for any current rib fracture Chest x-ray is unremarkable, it was read as a possible new left lower lobe infiltrate however patient's clinical picture does not match this whatsoever as the patient does not have a productive cough, fever, chills or any signs of illness. Results were discussed with the patient. Patient repeatedly asking for Ativan for pain management. I advised the patient that he is on maximal therapy with oxycodone and lidocaine. Unfortunately patient is ALLERGIC to NSAIDs and aspirin which I do think would benefit him if he were to be able to take them. I advised the patient I will not prescribe any further controlled substance to follow with his primary care or pain management doctor as planned. This time the patient does not appear to have an acute medical emergency and therefore will be discharged home. Disposition Clinical Impression: Chronic pain due to injury Disposition: HOME SELF-CARE Condition: Stable Instructions (If sedation given, give patient instructions): Chronic Pain (ED) Is patient prescribed a controlled substance at d/c from ED?: No Referrals: Kelley Coombs DO [Primary Care Provider] - 1-2 days
[2019-08-27 05:51] VITALS: BP 139/79; PULSE 79; RESP 18; TEMP 97
== END 2019-08-27 05:51 | disposition home or self-care (01) ==
LOC: EC 04:25
DX: G89.21 Chronic pain due to trauma (principal); R07.81 Pleurodynia; R10.9 Unspecified abdominal pain; E11.9 Type 2 diabetes mellitus without complications; I10 Essential (primary) hypertension; F41.9 Anxiety disorder, unspecified; F32.9 Major depressive disorder, single episode, unspecified; J44.9 Chronic obstructive pulmonary disease, unspecified; F17.210 Nicotine dependence, cigarettes, uncomplicated; Z79.84 Long term (current) use of oral hypoglycemic drugs; Z79.1 Long term (current) use of non-steroidal anti-inflammatories (NSAID); Z79.899 Other long term (current) drug therapy; Z88.6 Allergy status to analgesic agent; Z88.8 Allergy status to other drugs, medicaments and biological substances; Z98.1 Arthrodesis status
CPT/HCPCS: 99284

== ENCOUNTER → 2019-09-01 | Outpatient (CLI) | payer MEDICARE, OTHER ==
--- NOTE | 2019-09-01 16:30 | MR ---
EXAMINATION TYPE: MR lumbar spine wo con DATE OF EXAM: 09/01/2019 COMPARISON: CT 08/04/2019 HISTORY: Low Back Pain / Bony irregularity At L2 TECHNIQUE: Multiplanar, multisequence images of the lumbar spine were acquired. L1-L2: Minimal disc bulge, no central stenosis or foraminal encroachment. L2-L3: Posterior broad-based disc bulge causes minimal anterior mass effect on the thecal sac. There is facet arthropathy with hypertrophic changes at the facets causing minimal posterior lateral mass e ffect on the thecal sac. No significant central stenosis. L3-L4: Facet arthropathy with hypertrophy ligamentum flavum causes posterior lateral mass effect on t he thecal sac. Broad-based posterior disc bulge, endplate disc complex causes mild anterior mass effe ct on the thecal sac. There is some foraminal encroachment greater on the right than on the left due to circumferential extension endplate disc complex. Inferior endplate of L3 shows Schmorl's node form ation. L4-L5: Facet arthropathy with hypertrophy of ligamentum flavum causes a trefoil appearance of the the naveen sac with associated circumferential extension endplate disc complex which extends laterally to en croach upon the right neural foramen greater than left. L5-S1: Facet arthropathy changes present. Posterior extension endplate disc complex causes anterior m ass effect on the thecal sac and possibly contact with the proximal S1 nerve roots. Circumferential e xtension endplate disc complex results in bilateral foraminal encroachment. No significant central st enosis. Lumbar segments are intact. No paraspinal masses are identified. Conus medullaris has a normal appe arance. There is multilevel spondylosis present. Loss of disc height and signal present at the interv ertebral levels. Endplate discogenic marrow signal changes are present. Minimal retrolisthesis grade 1 L2-3, L5-S1 and minimal anterolisthesis grade 1 L4-5. There is a spinal curvature. IMPRESSION:
== END | disposition home or self-care (01) ==
LOC: RADMRIMAIN 14:49
PROVIDERS: ATTEND Orthopaedic Surgery Orthopaedic Surgery of the Spine
DX: M51.86 Other intervertebral disc disorders, lumbar region (principal); I10 Essential (primary) hypertension; E11.9 Type 2 diabetes mellitus without complications; R29.2 Abnormal reflex; M54.12 Radiculopathy, cervical region; S22.009A Unspecified fracture of unspecified thoracic vertebra, initial encounter for closed fracture; F17.218 Nicotine dependence, cigarettes, with other nicotine-induced disorders; K76.9 Liver disease, unspecified; S62.346A Nondisplaced fracture of base of fifth metacarpal bone, right hand, initial encounter for closed fracture; Z87.81 Personal history of (healed) traumatic fracture; Z98.1 Arthrodesis status
CPT/HCPCS: 72148

== ENCOUNTER 2019-09-09 13:45 | Emergency (ER) | payer MEDICARE ==
[2019-09-09 13:49] VITALS: TEMP 97.7
--- NOTE | 2019-09-09 14:20 | ED ---
Chest Pain HPI - General Chief Complaint: Recheck/Abnormal Lab/Rx Stated Complaint: rib pain Time Seen by Provider: 09/09/19 14:06 Source: patient Mode of arrival: ambulatory Limitations: no limitations - History of Present Illness Initial Comments: Patient is a 4-year-old male presenting to emergency Department with a chief complaint of rib pain. Patient reports 2 months ago he suffered a fracture ninth rib causing him irritation in the nerve . Patient reports he goes to a pain management clinic and is under contract. Patient reports recently came to the ED and broke his contract that he was given medication. Patient reports now they're gradually going to wean him off the narcotics. Patient states that his oxycodone is 2 days late and is unable to bear the pain. Patient reports most of his pain is located around the right flank region and is exacerbated with full inspiration. Patient denies dyspnea or any chest pain. Patient denies taking any other medication to alleviate the symptoms. Patient denies cough, hemoptysis. Patient denies night sweats fever or chills. Patient denies recent trauma to the region. - Related Data Home Medications Medication Instructions Recorded Confirmed glipiZIDE [Glucotrol] 10 mg PO BID 03/12/15 08/27/19 Omeprazole [PriLOSEC] 10 mg PO BID 03/27/15 08/27/19 oxyCODONE HCL [OxyIR] 10 mg PO Q6H PRN 07/04/19 08/27/19 Multivitamins, Thera [Multivitamin 1 tab PO DAILY 07/08/19 08/27/19 (formulary)] Baclofen [Lioresal] 10 mg PO TID 08/08/19 08/27/19 Lidocaine 5% Patch [Lidoderm 5% 1 patch TOPICAL DAILY PRN 08/08/19 08/27/19 Patch] Loratadine [Claritin] 10 mg PO DAILY 08/08/19 08/27/19 Meloxicam 15 mg PO DAILY 08/08/19 08/27/19 Metoprolol Tartrate 25 mg PO DAILY 08/13/19 08/27/19 Previous Rx's Medication Instructions Recorded Albuterol Inhaler [Ventolin Hfa 1 - 2 puff INHALATION RT-Q6H PRN 07/08/19 Inhaler] #1 inhaler Hydrocortisone Acetate [Anusol-Hc] 25 mg RC BID #28 supp.rect 07/21/19 Polyethylene Glycol 3350 [Miralax] 17 gm PO DAILY #30 packet 07/21/19 LORazepam [Ativan] 1 mg PO TID 3 Days #9 tab 08/13/19 oxyCODONE-APAP 5-325MG [Percocet 1 tab PO Q6HR PRN #4 tab 09/09/19 5-325 mg] Allergies Allergy/AdvReac Type Severity Reaction Status Date / Time aspirin Allergy Itching Verified 09/09/19 13:46 ibuprofen [From Motrin] Allergy Itching Verified 09/09/19 13:46 methocarbamol [From Robaxin] Allergy Itching Verified 09/09/19 13:46 Review of Systems ROS Statement: Those systems with pertinent positive or pertinent negative responses have been documented in the HPI. ROS Other: All systems not noted in ROS Statement are negative. Past Medical History Past Medical History: Diabetes Mellitus, Hypertension Additional Past Medical History / Comment(s): back pain History of Any Multi-Drug Resistant Organisms: None Reported Past Surgical History: No Surgical Hx Reported Additional Past Surgical History / Comment(s): Medical Hx-Chronic back pain, c4- c6 fusion, facial surgery, DDD lumbar Past Psychological History: Anxiety, Depression, PTSD Smoking Status: Current every day smoker Past Alcohol Use History: None Reported Past Drug Use History: Marijuana General Exam Limitations: no limitations General appearance: alert, in no apparent distress Head exam: Present: atraumatic, normocephalic, normal inspection Eye exam: Present: normal appearance Pupils: Present: normal accommodation ENT exam: Present: normal exam, normal oropharynx, mucous membranes moist, TM's normal bilaterally, normal external ear exam Neck exam: Present: normal inspection, full ROM Respiratory exam: Present: normal lung sounds bilaterally, chest wall tenderness (Right chest wall tenderness around the ninth rib.). Absent: decreased breath sounds, prolonged expiratory Cardiovascular Exam: Present: normal rhythm, tachycardia, normal heart sounds GI/Abdominal exam: Present: soft, normal bowel sounds. Absent: distended, tenderness, guarding, rebound Extremities exam: Present: normal inspection, full ROM Back exam: Present: normal inspection, full ROM Neurological exam: Present: alert, oriented X3 Psychiatric exam: Present: normal affect, normal mood Skin exam: Present: warm, dry, intact, normal color Course Vital Signs 09/09/19 09/09/19 13:46 15:22 Temperature 97.7 F Pulse Rate 122 H 98 Respiratory 24 18 Rate Blood Pressure 154/75 130/73 O2 Sat by Pulse 99 98 Oximetry Chest Pain MDM - Differential Diagnosis Chest Wall Syndrome - MDM Patient is 64-year-old male presenting to the emergency department with chief complaint of rib pain. X-ray showing a healing wound. Patient is here for symptomatically relief because he has not received his pain medication for the last 2 days. MAPS was obtained and shows patient had a one-month prescription of oxycodone prescribed 2 days ago and he is going to receive it tomorrow. [facility]. Patient states she has been 2 days without any pain medication. Patient given oxycodone here and given 4 more oxycodone tabs. Strict return parameters were thoroughly discussed with patient was understanding and agreeable. Case discussed with physician. Disposition Clinical Impression: Encounter for medication refill, Rib pain on right side Disposition: HOME SELF-CARE Condition: Stable Instructions (If sedation given, give patient instructions): Rib Fracture (ED) Additional Instructions: Please take prescribed medication as directed. Please follow with primary care. Please return to emergency department if symptoms worsen. Prescriptions: oxyCODONE-APAP 5-325MG [Percocet 5-325 mg] 1 tab PO Q6HR PRN #4 tab PRN Reason: Pain Is patient prescribed a controlled substance at d/c from ED?: No Referrals: None,Stated [Primary Care Provider] - 1-2 days Time of Disposition: 15:16
[2019-09-09] MEDS ORDERED: oxyCODONE-APAP 5-325MG 1 EACH TAB PO STA (14:30)
--- NOTE | 2019-09-09 14:31 | XR ---
Chest x-ray with right RIBS HISTORY: Rib fracture, shortness of breath Comparison prior exam 08/27/2019 frontal view of the chest and 4 views of the right ribs submitted. Postop changes in noted in the lower cervical spine. Sixth rib laterally show some callus formation c onsistent with healing fracture. There is no evident pneumothorax or pleural effusion. Cardiac medias tinal silhouette, pulmonary vascularity and chalres within normal limits. impression: Healing rib fracture. Bone scan could be performed for increased sensitivity as indicated .
[2019-09-09 15:24] VITALS: BP 130/73; PULSE 98; RESP 18
== END 2019-09-09 15:22 | disposition home or self-care (01) ==
LOC: EC 13:45
DX: R07.81 Pleurodynia (principal); Z76.0 Encounter for issue of repeat prescription; S22.31XD Fracture of one rib, right side, subsequent encounter for fracture with routine healing; R00.0 Tachycardia, unspecified; F17.200 Nicotine dependence, unspecified, uncomplicated; E11.9 Type 2 diabetes mellitus without complications; I10 Essential (primary) hypertension; G89.29 Other chronic pain; Z88.6 Allergy status to analgesic agent; Z88.8 Allergy status to other drugs, medicaments and biological substances; Z79.1 Long term (current) use of non-steroidal anti-inflammatories (NSAID); Z79.84 Long term (current) use of oral hypoglycemic drugs; Z79.899 Other long term (current) drug therapy; Z98.1 Arthrodesis status; X58.XXXD Exposure to other specified factors, subsequent encounter
CPT/HCPCS: 99283

== ENCOUNTER 2019-09-12 15:52 | Emergency (ER) | payer MEDICARE ==
[2019-09-12 16:13] VITALS: BP 125/64; PULSE 93; RESP 18; TEMP 98.2
[2019-09-12] MEDS ORDERED: MORPHINE SULFATE 4 MG/ML SYRINGE IM STA (16:51)
--- NOTE | 2019-09-12 17:19 | XR ---
Chest x-ray with right RIBS HISTORY: Prior rib fracture, right-sided chest pain Frontal view of the chest and 4 views of the right ribs submitted and correlated to prior chest x-ray and RIBS 09/09/2019 There is no significant interval change. IMPRESSION: No acute cardiopulmonary disease. Postop changes noted to the cervical spine. Sixth rib f racture shows evidence of healing anteriorly.
--- NOTE | 2019-09-12 17:55 | ED ---
General Adult HPI - General Chief complaint: Extremity Injury, Upper Stated complaint: right sided rib pain Time Seen by Provider: 09/12/19 16:20 Source: patient, RN notes reviewed, old records reviewed Mode of arrival: ambulatory Limitations: no limitations - History of Present Illness Initial comments: 64-year-old male patient presents to ED complaining of right posterior rib pain. Patient reports that he broke his ninth rib 2 months ago. Patient reports that he has had pain ever since. Patient reports that he was sent by Dr. Sanches pain management. Dr. Coombs believes that there is a nerve irritation. Patient reports that he is due to see his painter barrel next week. However the pain has been difficult to control with oxycodone. Denies anterior chest pain. Denies any shortness breath. Denies any new or concerning symptoms. Systemic: Pt denies fatigue, fever/chills, rash. Pt denies weakness, night sweats, weight loss. Neuro: Pt denies headache, visual disturbances, syncope or pre-syncope. HEENT: Pt denies ocular discharge or irritation, otalgia, rhinorrhea, pharyngitis or notable lymphadenopathy. Cardiopulmonary: Pt denies chest pain, SOB, heart palpitations, dyspnea on exertion. Abdominal/GI: Pt denies abdominal pain, n/v/d. : Pt denies dysuria, burning w/ urination, frequency/urgency. Denies new onset urinary or bowel incontinence. MSK: Pt denies myalgia, loss of strength or function in extremities. Neuro: Pt denies new onset weakness, paresthesias. - Related Data Home Medications Medication Instructions Recorded Confirmed glipiZIDE [Glucotrol] 10 mg PO BID 03/12/15 08/27/19 Omeprazole [PriLOSEC] 10 mg PO BID 03/27/15 08/27/19 oxyCODONE HCL [OxyIR] 10 mg PO Q6H PRN 07/04/19 08/27/19 Multivitamins, Thera [Multivitamin 1 tab PO DAILY 07/08/19 08/27/19 (formulary)] Baclofen [Lioresal] 10 mg PO TID 08/08/19 08/27/19 Lidocaine 5% Patch [Lidoderm 5% 1 patch TOPICAL DAILY PRN 08/08/19 08/27/19 Patch] Loratadine [Claritin] 10 mg PO DAILY 10/20/19 11/08/19 Meloxicam 15 mg PO DAILY 08/08/19 08/27/19 Metoprolol Tartrate 25 mg PO DAILY 08/13/19 08/27/19 Previous Rx's Medication Instructions Recorded Albuterol Inhaler [Ventolin Hfa 1 - 2 puff INHALATION RT-Q6H PRN 07/08/19 Inhaler] #1 inhaler Hydrocortisone Acetate [Anusol-Hc] 25 mg RC BID #28 supp.rect 07/21/19 Polyethylene Glycol 3350 [Miralax] 17 gm PO DAILY #30 packet 07/21/19 LORazepam [Ativan] 1 mg PO TID 3 Days #9 tab 08/13/19 oxyCODONE-APAP 5-325MG [Percocet 1 tab PO Q6HR PRN #4 tab 09/09/19 5-325 mg] Allergies Allergy/AdvReac Type Severity Reaction Status Date / Time aspirin Allergy Itching Verified 09/12/19 16:13 ibuprofen [From Motrin] Allergy Itching Verified 09/12/19 16:13 methocarbamol [From Robaxin] Allergy Itching Verified 09/12/19 16:13 Review of Systems ROS Statement: Those systems with pertinent positive or pertinent negative responses have been documented in the HPI. ROS Other: All systems not noted in ROS Statement are negative. Past Medical History Past Medical History: Diabetes Mellitus, Hypertension Additional Past Medical History / Comment(s): back pain, rib pain History of Any Multi-Drug Resistant Organisms: None Reported Past Surgical History: No Surgical Hx Reported Additional Past Surgical History / Comment(s): Medical Hx-Chronic back pain, c4- c6 fusion, facial surgery, DDD lumbar Past Psychological History: Anxiety, Depression, PTSD Smoking Status: Current every day smoker Past Alcohol Use History: None Reported Past Drug Use History: Marijuana General Exam - General Exam Comments Initial Comments: Constitutional: NAD, AOX3, Pt has pleasant affect. HEENT: NC/AT, trachea midline, neck supple, no lymphadenopathy. Posterior pharynx non erythematous, without exudates. External ears appear normal, without discharge. Mucous membranes moist. Eyes PERRLA, EOM intact. There is no scleral icterus. No pallor noted. Cardiopulmonary: RRR, no murmurs, rubs or gallops, no JVD noted. Lungs CTAB in anterior and posterior ervin. No peripheral edema. Abdominal exam: Abdomen soft and non-distended. Abdomen non-tender to palpation in all 4 quadrants. Bowel sounds active in LLQ. No hepatosplenomegaly. No ecchymosis Neuro: CN II-XII grossly intact. No nuchal rigidity. No raccon eyes, no gonzales sign, no hemotympanum. No cervical spinal tenderness. MSK: Focal tenderness to palpation right posterior rib region. No skin changes. No posterior calf tenderness bilaterally, homans sign negative bilaterally. Posterior tibialis and radial pulse +2 bilaterally. Sensation intact in upper and lower extremities. Full active ROM in upper and lower extremities, 5/5 stregnth. Limitations: no limitations Course Vital Signs 09/12/19 16:11 Temperature 98.2 F Pulse Rate 93 Respiratory 18 Rate Blood Pressure 125/64 O2 Sat by Pulse 97 Oximetry Medical Decision Making - Medical Decision Making 64-year-old male patient presents to chief complaint of right posterior rib pain. Patient will signs stable, afebrile. Physical exam displayed focal tenderness to palpation right posterior rib region. Rib x-ray with PHS displayed no tachycardia pulmonary disease. Postop changes noted cervical spine. Sixth rib fracture shows healing anteriorly. Patient pain well-contr olled. Patient discharged to follow up with primary care provider will return to ER if condition worsens. Disposition Clinical Impression: Rib pain Disposition: HOME SELF-CARE Condition: Stable Instructions (If sedation given, give patient instructions): Musculoskeletal Pain (ED) Additional Instructions: Follow-up with primary care provider Dr. Coombs and pain management tomorrow. Did use lidocaine patches, pain medication as needed. Return to ER if condition worsens. Is patient prescribed a controlled substance at d/c from ED?: No Referrals: Kelley Coombs DO [Primary Care Provider] - 1-2 days
== END 2019-09-12 18:00 | disposition home or self-care (01) ==
LOC: EC 15:52
DX: R07.81 Pleurodynia (principal); S22.31XD Fracture of one rib, right side, subsequent encounter for fracture with routine healing; E11.9 Type 2 diabetes mellitus without complications; I10 Essential (primary) hypertension; F17.200 Nicotine dependence, unspecified, uncomplicated; Z79.1 Long term (current) use of non-steroidal anti-inflammatories (NSAID); Z79.84 Long term (current) use of oral hypoglycemic drugs; Z79.899 Other long term (current) drug therapy; Z88.6 Allergy status to analgesic agent; Z88.8 Allergy status to other drugs, medicaments and biological substances; X58.XXXD Exposure to other specified factors, subsequent encounter
CPT/HCPCS: 71101; 99284; 96372; J2270

== ENCOUNTER → 2019-09-20 | Outpatient (CLI) | payer MEDICARE ==
[2019-09-20 11:43] VITALS: BP 124/76; PULSE 91; RESP 16
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
== END | disposition home or self-care (01) ==
LOC: PNWHC3 10:53
PROVIDERS: ATTEND Anesthesiology
DX: G89.29 Other chronic pain (principal); R07.81 Pleurodynia; F41.9 Anxiety disorder, unspecified; F32.9 Major depressive disorder, single episode, unspecified; F43.10 Post-traumatic stress disorder, unspecified; F17.200 Nicotine dependence, unspecified, uncomplicated; Z79.1 Long term (current) use of non-steroidal anti-inflammatories (NSAID); Z79.899 Other long term (current) drug therapy; Z88.6 Allergy status to analgesic agent; Z88.5 Allergy status to narcotic agent
CPT/HCPCS: 99211

== ENCOUNTER 2019-09-21 04:08 | Emergency (ER) | payer MEDICARE ==
[2019-09-21 04:17] VITALS: BP 122/76; PULSE 92; RESP 18; TEMP 97.7
--- NOTE | 2019-09-21 04:33 | ED ---
General Adult HPI - General Chief complaint: Recheck/Abnormal Lab/Rx Stated complaint: rib pain Time Seen by Provider: 09/21/19 04:12 Source: patient Mode of arrival: ambulatory Limitations: no limitations - History of Present Illness Initial comments: Kumar is a 64-year-old gentleman very well known to our emergency department for recurrent visits for chronic right-sided rib pain secondary to a fall with rib fractures earlier in the year. Patient presents the emergency department today complaining of worsening pain in his ribs. Patient reports that he ran out of his Lidoderm patches yesterday. Edition he was advised this. Be sure doctor at the [facility] that because of his visits the ER receiving narcotic pain medications here he has violated his contract and thus they will begin weaning him off narcotics and releasing him from their service. Patient reports he was previously on high-dose narcotics multiple times today and his dose has been decreased and malleolus only prescribed pills 3 times a day. Patient reports he is followed with a new pain management doctor whom he saw yesterday with the plan for injection for intercostal nerve block next week. Patient reports that tonight the pain kept him sleeping so he came to the ER for further evaluation. Pain is chronic in nature nothing new no recurrent injury. - Related Data Home Medications Medication Instructions Recorded Confirmed glipiZIDE [Glucotrol] 10 mg PO BID 03/12/15 09/20/19 Multivitamins, Thera [Multivitamin 1 tab PO DAILY 07/08/19 09/20/19 (formulary)] Lidocaine 5% Patch [Lidoderm 5% 1 patch TOPICAL DAILY PRN 08/08/19 09/20/19 Patch] Loratadine [Claritin] 10 mg PO DAILY 08/08/19 09/20/19 Meloxicam 15 mg PO DAILY 08/08/19 09/20/19 Metoprolol Tartrate 25 mg PO DAILY 08/13/19 09/20/19 Atorvastatin [Lipitor] 40 mg PO HS 09/13/19 09/20/19 Lisinopril [Zestril] 10 mg PO DAILY 09/13/19 09/20/19 Polyethylene Glycol 3350 [Miralax] 17 gm PO DAILY PRN 09/13/19 09/20/19 Ranitidine HCl [Zantac] 150 mg PO BID 09/13/19 09/20/19 Previous Rx's Medication Instructions Recorded Albuterol Inhaler [Ventolin Hfa 1 - 2 puff INHALATION RT-Q6H PRN 07/08/19 Inhaler] #1 inhaler Lidocaine 5% Patch [Lidoderm] 1 patch TOPICAL DAILY #30 patch 09/21/19 Allergies Allergy/AdvReac Type Severity Reaction Status Date / Time aspirin Allergy Itching Verified 09/21/19 04:17 ibuprofen [From Motrin] Allergy Itching Verified 09/21/19 04:17 methocarbamol [From Robaxin] Allergy Itching Verified 09/21/19 04:17 Review of Systems ROS Statement: Those systems with pertinent positive or pertinent negative responses have been documented in the HPI. ROS Other: All systems not noted in ROS Statement are negative. Past Medical History Past Medical History: Diabetes Mellitus, Hypertension Additional Past Medical History / Comment(s): back pain, rib pain History of Any Multi-Drug Resistant Organisms: None Reported Past Surgical History: No Surgical Hx Reported Additional Past Surgical History / Comment(s): Medical Hx-Chronic back pain, c4- c6 fusion, facial surgery, DDD lumbar Past Psychological History: Anxiety, Depression, PTSD Smoking Status: Current every day smoker Past Alcohol Use History: None Reported Past Drug Use History: None Reported General Exam - General Exam Comments Initial Comments: Physical Exam GENERAL: Patient is well-developed and well-nourished. Patient is nontoxic and well-hydrated and is in no distress. HENT: Normocephalic, Atraumatic. EYES: PERRL, EOMI PULMONARY: Unlabored respirations. Lungs are clear to auscultation bilaterally Tenderness to palpation of the right-sided ribs CARDIOVASCULAR: RRR Warm and well perfused extremities ABDOMEN: Non-distended SKIN: No rashes or bruising No herpetic lesions or signs of shingles : Deferred NEUROLOGIC: Alert and oriented Normal speech Normal gait MUSCULOSKELETAL: Moving all extremities with no apparent injury PSYCHIATRIC: No SI/HI Limitations: no limitations Course Vital Signs 09/21/19 04:15 Temperature 97.7 F Pulse Rate 92 Respiratory 18 Rate Blood Pressure 122/76 O2 Sat by Pulse 95 Oximetry Medical Decision Making - Medical Decision Making The patient was seen and evaluated history is obtained from patient, advised the patient that I will not prescribe narcotic pain medications as he is arty prescribe some. I will given Lidoderm patch here and prescribed a new Lidoderm patch. Encouraged patient to follow closely with the management doctor regarding his chronic pain. Disposition Clinical Impression: Chronic pain due to injury, Rib pain on right side Disposition: HOME SELF-CARE Condition: Stable Instructions (If sedation given, give patient instructions): Costochondritis (ED) Prescriptions: Lidocaine 5% Patch [Lidoderm] 1 patch TOPICAL DAILY #30 patch Is patient prescribed a controlled substance at d/c from ED?: No Referrals: None,Stated [Primary Care Provider] - 1-2 days
[2019-09-21] MEDS ORDERED: LIDOCAINE 5% PATCH TOPICAL STA (04:38)
== END 2019-09-21 04:52 | disposition home or self-care (01) ==
LOC: EC 04:08
DX: G89.21 Chronic pain due to trauma (principal); R07.81 Pleurodynia; E11.9 Type 2 diabetes mellitus without complications; I10 Essential (primary) hypertension; F17.200 Nicotine dependence, unspecified, uncomplicated; Z79.1 Long term (current) use of non-steroidal anti-inflammatories (NSAID); Z79.84 Long term (current) use of oral hypoglycemic drugs; Z79.899 Other long term (current) drug therapy; Z88.6 Allergy status to analgesic agent; Z88.8 Allergy status to other drugs, medicaments and biological substances
CPT/HCPCS: 99282

== ENCOUNTER 2019-09-27 08:42 | Day surgery (SDC) | payer MEDICARE, OTHER ==
[2019-09-24 11:07] VITALS: BMI 25.1
[~2019-09-27 08:42] MED LIST: LACTATED RINGERS 1,000 ML IV SCH
[2019-09-27 09:14] VITALS: TEMP 98.3
[2019-09-27 09:41] LABS: Glucose,Whole Blood 120 mg/dL (75-99)
[2019-09-27] MEDS ORDERED: LACTATED RINGERS 1,000 ML IV ONE (09:45)
[2019-09-27] MEDS ORDERED: IV FLUID CONTINUATION 700 ML IV ONE (10:30)
[2019-09-27 10:32] VITALS: BP 106/64; PULSE 76; RESP 16
--- NOTE | 2019-09-27 10:32 | P.PCN ---
Date of Procedure: 09/27/19 Procedure(s) Performed: Intercostal Nerve Block Attending: Eric Barba M.D. 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 IV SEDATION with Versed and fentanyl, sedation time 20 minutes Fluoroscopy was used for the procedure and images saved to patient's chart. Ultrasound was also used for the procedure and images saved to the patient's chart. PROCEDURE AND FINDINGS: The patient was greeted in the pre procedure holding area. The risk, benefits and alternatives to the procedure were again reviewed with the patient and written informed consent was placed in the chart. Prior to the procedure a time out was completed, verifying correct patient, procedure, site, positioning, and implants and/or special equipment. An IV line was placed. A 500 mL bag of NS was connected to the patient. The patient was taken to the procedure room and positioned prone on the fluoroscopy table. Routine monitors were applied including EKG leads, blood pressure cuff, and pulse oximetry. The area of subcutaneous tissue on the right side(s) overlying the T 11, T12 levels was identified. The patient was prepped and draped in the usual sterile fashion. At this point, a radiopaque pointer was used to count all ribs corresponding to this level. Coming down from the 1st thoracic level the proper ribs were identified. The vertebral bodies were marked, and a point in t he inferior margin of the corresponding ribs were identified and marked approximately 6 centimeters lateral to midline. At this point, the subcutaneous tissue and the skin was anesthetized using about 3 cc of 1% lidocaine at each level. This was accomplished with a 1-1/2 inch 25- gauge needle. Then, a 21-gauge Pajunk 50 mm needle was used and Os was contacted in each case and the tissue infiltration was done under live ultrasound guidance. The tip of the needle was walked off the inferior aspect of the rib and at that point, 20 milligrams of Kenalog was injected with 1-1/2 cc of ropivacaine 0.5% at each level. A total of 40 mg of Kenalog was used for the procedure. The needle was flushed and removed. The patient tolerated the procedure well. Patient was hemodynamically stable throughout and had no difficulty with respiration or coughing or shortness of breath. The patient was taken to the recovery room where they were monitored for a brief period of time. Patient tolerated the procedure well and were discharged home in stable condition with post procedural instructions. The patient had no questions prior to discharge. Patient was instructed to go to the emergency [facility] should they develop sudden shortness of breath, coughing or difficulty with breathing. The patient will follow up in clinic in 4 weeks. Complications: none
--- NOTE | 2019-09-27 10:50 | FL ---
EXAMINATION TYPE: FL guided pain mgmt statistic DATE OF EXAM: 09/27/2019 HISTORY: Flouroscopy time 3 seconds of fluoroscopy provided. IMPRESSION: 1. Fluoroscopy time.
== END 2019-09-27 11:30 | disposition home or self-care (01) ==
LOC: ORPAIN 08:42
PROVIDERS: ATTEND Anesthesiology
DX: G89.29 Other chronic pain (principal); G58.8 Other specified mononeuropathies; Z79.891 Long term (current) use of opiate analgesic; M51.36 Other intervertebral disc degeneration, lumbar region; M50.30 Other cervical disc degeneration, unspecified cervical region; Z98.1 Arthrodesis status; F41.9 Anxiety disorder, unspecified; F32.9 Major depressive disorder, single episode, unspecified; F17.200 Nicotine dependence, unspecified, uncomplicated; F43.10 Post-traumatic stress disorder, unspecified; Z79.84 Long term (current) use of oral hypoglycemic drugs; Z79.1 Long term (current) use of non-steroidal anti-inflammatories (NSAID); Z79.899 Other long term (current) drug therapy; Z88.6 Allergy status to analgesic agent; Z88.8 Allergy status to other drugs, medicaments and biological substances
CPT/HCPCS: 64420; J2250; J3301; J3010; 99152

== ENCOUNTER 2019-10-11 13:40 | Emergency (ER) | payer MEDICARE ==
[2019-10-11 14:17] VITALS: BP 149/82; PULSE 113; RESP 18; TEMP 98.4
[2019-10-11] MEDS ORDERED: ACET/COD 300 MG/30 MG STARTER PACK 6 TAB BTL PO STA (15:26)
--- NOTE | 2019-10-11 15:28 | ED ---
Back Pain HPI - General Chief Complaint: Back Pain/Injury Stated Complaint: Back Pain Time Seen by Provider: 10/11/19 15:06 Source: patient, RN notes reviewed, old records reviewed Limitations: no limitations - History of Present Illness Initial Comments: 64 year old male, presents today for concern for chronic back pain. Patient reports that he is out of his oxycodone from [facility] as he is off of his pain contract. Patient reports that he has no fevers or chills. Patient denies fall or trauma. Patient denies saddle anesthesia. - Related Data Home Medications Medication Instructions Recorded Confirmed glipiZIDE [Glucotrol] 10 mg PO BID 03/12/15 09/27/19 Multivitamins, Thera [Multivitamin 1 tab PO DAILY 07/08/19 09/27/19 (formulary)] Lidocaine 5% Patch [Lidoderm 5% 1 patch TOPICAL DAILY PRN 08/08/19 09/27/19 Patch] Loratadine [Claritin] 10 mg PO DAILY 08/08/19 09/27/19 Meloxicam 15 mg PO DAILY 08/08/19 09/27/19 Metoprolol Tartrate 25 mg PO DAILY 08/13/19 09/27/19 Atorvastatin [Lipitor] 40 mg PO HS 09/13/19 09/27/19 Lisinopril [Zestril] 10 mg PO DAILY 09/13/19 09/27/19 Polyethylene Glycol 3350 [Miralax] 17 gm PO DAILY PRN 09/13/19 09/27/19 Ranitidine HCl [Zantac] 150 mg PO BID 09/13/19 09/27/19 Previous Rx's Medication Instructions Recorded Albuterol Inhaler [Ventolin Hfa 1 - 2 puff INHALATION RT-Q6H PRN 07/08/19 Inhaler] #1 inhaler Allergies Allergy/AdvReac Type Severity Reaction Status Date / Time aspirin Allergy Itching Verified 10/11/19 14:17 ibuprofen [From Motrin] Allergy Itching Verified 10/11/19 14:17 methocarbamol [From Robaxin] Allergy Itching Verified 10/11/19 14:17 Review of Systems ROS Statement: Those systems with pertinent positive or pertinent negative responses have been documented in the HPI. ROS Other: All systems not noted in ROS Statement are negative. Past Medical History Past Medical History: Diabetes Mellitus, Hypertension, Musculoskeletal Disorder Additional Past Medical History / Comment(s): back pain, rib pain, DDD History of Any Multi-Drug Resistant Organisms: None Reported Past Surgical History: Back Surgery Additional Past Surgical History / Comment(s): c4-c6 fusion, facial surgery Past Anesthesia/Blood Transfusion Reactions: No Reported Reaction Past Psychological History: Anxiety, Depression, PTSD Smoking Status: Current every day smoker Past Alcohol Use History: None Reported Past Drug Use History: Marijuana General Exam - General Exam Comments Initial Comments: 64 year old male, no distress. Limitations: no limitations General appearance: alert, in no apparent distress Head exam: Present: atraumatic, normocephalic, normal inspection Eye exam: Present: normal appearance, PERRL, EOMI. Absent: scleral icterus, conjunctival injection, periorbital swelling ENT exam: Present: normal exam, mucous membranes moist Neck exam: Present: normal inspection. Absent: tenderness, meningismus, lymphadenopathy Respiratory exam: Present: normal lung sounds bilaterally. Absent: respiratory distress, wheezes, rales, rhonchi, stridor Cardiovascular Exam: Present: regular rate, normal rhythm, normal heart sounds. Absent: systolic murmur, diastolic murmur, rubs, gallop, clicks GI/Abdominal exam: Present: soft, normal bowel sounds. Absent: distended, tenderness, guarding, rebound, rigid Extremities exam: Present: normal inspection, full ROM, normal capillary refill. Absent: tenderness, pedal edema, joint swelling, calf tenderness Back exam: Present: normal inspection Neurological exam: Present: alert, oriented X3, CN II-XII intact Psychiatric exam: Present: normal affect, normal mood Skin exam: Present: warm, dry, intact, normal color. Absent: rash Course Vital Signs 10/11/19 14:14 Temperature 98.4 F Pulse Rate 113 H Respiratory 18 Rate Blood Pressure 149/82 O2 Sat by Pulse 98 Oximetry Medical Decision Making - Medical Decision Making Patient is a 64 year old male with chronic back pain, out of his pain medication. Patient has red flag symptoms. Discussed no further pain medication from ED. Patient given tylenol with codeine starter pack and advised motrin and tylenol. Discussed return parameters and PCP follow up. Disposition Clinical Impression: Chronic back pain, Withdrawal from opioids Disposition: HOME SELF-CARE Condition: Good Instructions (If sedation given, give patient instructions): Acute Low Back Pain (ED) Additional Instructions: Patient can follow-up with her primary care doctor. Return to the emergency department if any alarming signs or symptoms occur. Is patient prescribed a controlled substance at d/c from ED?: No Referrals: None,Stated [Primary Care Provider] - 1-2 days Arpita Rodriguez MD [STAFF PHYSICIAN] - 1-2 days Time of Disposition: 15:27
== END 2019-10-11 15:40 | disposition home or self-care (01) ==
LOC: EC 13:40
DX: F11.23 Opioid dependence with withdrawal (principal); G89.29 Other chronic pain; M54.9 Dorsalgia, unspecified; E11.9 Type 2 diabetes mellitus without complications; I10 Essential (primary) hypertension; F17.200 Nicotine dependence, unspecified, uncomplicated; Z88.6 Allergy status to analgesic agent; Z88.8 Allergy status to other drugs, medicaments and biological substances; Z79.1 Long term (current) use of non-steroidal anti-inflammatories (NSAID); Z79.84 Long term (current) use of oral hypoglycemic drugs; Z79.899 Other long term (current) drug therapy; Z98.1 Arthrodesis status
CPT/HCPCS: 99283

== ENCOUNTER 2019-10-27 19:45 | Emergency (ER) | payer MEDICARE ==
[2019-10-27 19:54] VITALS: BP 170/77; PULSE 107; RESP 20; TEMP 97.8
[2019-10-27] MEDS ORDERED: MORPHINE SULFATE 4 MG/ML SYRINGE IM STA (20:08)
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
--- NOTE | 2019-10-27 20:40 | XR ---
EXAMINATION TYPE: XR thoracic spine complete DATE OF EXAM: 10/27/2019 COMPARISON: Chest x-ray 08/14/2019 HISTORY: Back pain. Fall. TECHNIQUE: 4 views FINDINGS: Thoracic vertebra have normal alignment. Disc spaces are fairly normal. There is no flory shawna fracture. Posterior elements are intact. There are no paraspinal masses. IMPRESSION: Negative thoracic spine exam. No fracture. No change.
--- NOTE | 2019-10-27 20:42 | XR ---
EXAMINATION TYPE: XR chest 2V DATE OF EXAM: 10/27/2019 COMPARISON: 09/12/2019 HISTORY: Fall. Chest pain. TECHNIQUE: FINDINGS: Heart and mediastinum are normal. Lungs are clear. There is no pleural effusion or pneumoth orax. IMPRESSION: No active cardiopulmonary disease. No change.
--- NOTE | 2019-10-27 20:44 | XR ---
EXAMINATION TYPE: XR shoulder complete RT DATE OF EXAM: 10/27/2019 COMPARISON: NONE HISTORY: Fall. Shoulder pain. TECHNIQUE: 3 views FINDINGS: There is narrowing of the glenohumeral joint space. I see no fracture nor dislocation. Ther e is mild spur formation. IMPRESSION: Mild degenerative changes. No fracture seen.
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
== END 2019-10-27 21:30 | disposition home or self-care (01) ==
LOC: EC 19:45
DX: S09.90XA Unspecified injury of head, initial encounter (principal); M25.511 Pain in right shoulder; E11.9 Type 2 diabetes mellitus without complications; I10 Essential (primary) hypertension; E78.5 Hyperlipidemia, unspecified; K21.9 Gastro-esophageal reflux disease without esophagitis; F17.200 Nicotine dependence, unspecified, uncomplicated; Z79.1 Long term (current) use of non-steroidal anti-inflammatories (NSAID); Z79.84 Long term (current) use of oral hypoglycemic drugs; Z79.899 Other long term (current) drug therapy; Z88.6 Allergy status to analgesic agent; Z88.8 Allergy status to other drugs, medicaments and biological substances; V18.0XXA Pedal cycle driver injured in noncollision transport accident in nontraffic accident, initial encounter; Y93.55 Activity, bike riding
CPT/HCPCS: 72072; 73030; 71046; 72125; 70450; 99284; 96372; J2270

== ENCOUNTER 2019-11-17 06:19 | Day surgery (SDC) | payer MEDICARE, OTHER ==
[2019-11-15 11:36] VITALS: BMI 25.8
[~2019-11-17 06:19] MED LIST changes: +BUPIVACAINE (PF) 0.5% 30 ML VIAL ONE; +IOPAMIDOL M200 10 ML VIAL ONE; +MIDAZOLAM 2 MG/2 ML VIAL ONE; +fentaNYL (PF) 50 MCG/ML 2 ML AMP ONE; +methylPREDNISolone ACETATE 40 MG/ML 1 ML VIAL ONE
[2019-11-17] MEDS ORDERED: LIDOCAINE 1% 20 ML VIAL (10MG/ML) FOR IV START INTRADERMA ONE (06:29)
[2019-11-17 06:46] VITALS: RESP 16; TEMP 97.9
[2019-11-17 06:48] LABS: Glucose,Whole Blood 83 mg/dL (75-99)
[2019-11-17] MEDS ORDERED: LACTATED RINGERS 1,000 ML IV ONE (07:44)
--- NOTE | 2019-11-17 07:44 | P.PCN ---
Date of Procedure: 11/17/19 Procedure(s) Performed: PROCEDURE: right sided T11 ,T12 Intercostal nerve block under fluoroscopic guidance.( Fluoroscopy images available in the radiology department ) PREOP DIAGNOSIS: Right side Intercostal neuralgia. POSTOP DIAGNOSIS: Right side Intercostal neuralgia. ANESTHESIA: Moderate sedation Versed, 2 mg and Fentanyl 50 g EBL: Minimal COMPLICATION: None. 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 PROCEDURE DESCRIPTION: The patient was seen and identified in the preoperative area. Risks, benefits, complications, and alternatives were discussed with the patient. The patient agreed to proceed with the procedure and signed the consent. IV was started. Vital signs were stable throughout the procedure. The patient was taken to the procedure room and was placed in the prone position on the procedure table. The thoracic area was prepped and draped in the usual sterile fashion. Critical pause was taken. Using anteroposterior fluoroscopy, the T11 rib on the right/left side was identified. An area approximately 2 inches lateral to the vertebral midline was localized under fluoroscopy. Subsequently, a 22-gauge, 3-1/2-inch needle was advanced under fluoroscopy towards the inferior aspect of the rib. After making contact with the rib, the needle was walked off and carefully slipped inferiorly off the rib. After negative aspiration and with the absence of paresthesias Isovue-200 1 mL injected and it showed that there is no intravascular spread and then after negative aspiration ropivacaine 0.5% 2 mL and 20 mg of Depo-Medrol injected after negative aspiration ,and the same procedure was repeated at the levels of T12 level At the end of the procedure, skin was cleansed, and bandages were applied. Patient denied any shortness of breath after the procedure. Lungs auscultation showed clear and equal air entry bilaterally after the procedure. The patient tolerated the procedure well without complications. Patient was o bserved in the recovery area until he/she met all discharge criteria.
[2019-11-17 08:00] VITALS: PULSE 90
[2019-11-17 08:10] VITALS: BP 118/72
--- NOTE | 2019-11-17 08:11 | FL ---
Fluoroscopy HISTORY: Pain 3 seconds fluoroscopy time supplied to the referring clinician. 1 intraoperative C-arm images docume nt the procedure. See dictated report from anesthesia.
--- NOTE | 2019-11-17 08:56 | XR ---
EXAMINATION TYPE: XR chest 1V portable DATE OF EXAM: 11/17/2019 Comparison: 10/27/2019 Clinical History: 64-year-old male pneumothorax, right-sided pain Findings: Heart normal size. Aorta and pulmonary vasculature within normal limits. No appreciable pneumothorax. No consolidation or pleural effusion. Impression: No appreciable pneumothorax. No infiltrate or effusion.
== END 2019-11-17 09:02 | disposition home or self-care (01) ==
LOC: ORPAIN 06:19
PROVIDERS: ATTEND Specialist
DX: G58.8 Other specified mononeuropathies (principal); S22.31XA Fracture of one rib, right side, initial encounter for closed fracture; E11.9 Type 2 diabetes mellitus without complications; Z88.6 Allergy status to analgesic agent; Z88.8 Allergy status to other drugs, medicaments and biological substances
CPT/HCPCS: 77002; 71045; 64420; 64421; J2250; J1030; J3010; Q9966

== ENCOUNTER → 2019-11-30 | Outpatient (CLI) | payer MEDICARE, OTHER ==
[2019-11-30 14:01] VITALS: BP 154/75; PULSE 111; RESP 20
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
== END ==
LOC: PNWHC3 13:39
PROVIDERS: ATTEND Anesthesiology
DX: G89.29 Other chronic pain (principal); R07.81 Pleurodynia; Z79.899 Other long term (current) drug therapy
CPT/HCPCS: 99211

== ENCOUNTER → 2019-12-28 | Outpatient (CLI) | payer MEDICARE ==
[2019-12-28 13:05] VITALS: BP 129/65; PULSE 87; RESP 18
--- NOTE | 2019-12-28 13:59 | P.PAINPG ---
Subjective Progress Note Date: 12/28/19 This is a follow-up visit for this 64 years old male, with a history of chronic right-sided chest wall pain he statesright-sided intercostal neuralgia, previously we have done right side intercostal nerve block at T11 ,T12 , x2 , patient reported that his right-sided chest wall pain improved for a couple of weeks after each injection, and currently he is complaining of right-sided chest wall pain and also is complaining of severe neck pain and shoulder pain, currently his neck pain increases significantly, he doesn't have any numbness or tingling sensation in the upper extremities, he does not have any weakness, he does not have any change in the bowel movement or urination, he'll continue to use Virgil 200 mg 3 times a day he doesn't feel that he is getting any benefit from it, and he doesn't get benefit from Mobic. Objective - Vital Signs Vital signs: Vital Signs Temp Pulse 87 12/28/19 12:53 Resp 18 12/28/19 12:53 BP 129/65 12/28/19 12:53 Pulse Ox 95 12/28/19 12:53 - Exam Physical Examinations : -Constitutiona : Cooperative , not in acute distress . -HEENT : nech : supple , no Lymphadenopathy , normal thyroid size . : eyes : no ptosis , no icterus, no photophobia . : ENT : normal of hearing , normal oropharynx , no Thrush . - Respiratory : Chest clear to auscultations Bilaterally , no wheezing , no Rhonchi - Cardiovascula : regular rate and rhythem , S1 , S2 , no S3 , no S4. - Gastrointestina : abdomen soft no tenderness , bowel sounds , no organomegally . - Genitourinary : Defferred . - neurologic : Cranial nerve II to XII intact , no focal neurological deffecit . -psychatric : alert , oriented X 3 , appropriate affect , intact judgment and insight . -Lymphatic : no Lymphadenopathy . - musculoskeltal : Cervical Spine motor stregnth in the deltoid and biceps, normal right side , normal Left side motor stregnth biceps and the wrist extensors normal right side ,normal left side . motor stregnth in the triceps muscle . normal Right side , normal Left side deep tendon reflexes normal at the biceps , normal at Brachioradialis , normal at triceps. cervical facet loading test: Positive Bilaterally Myofascial pain in the rhomboid and trapezius, and suprascapular muscles bilaterally more severe on the right side Spurling test = positive bilaterally. Neck distraction test= positive bilaterally. Daphne sign = positive bilaterally. thoracic spine: Positive anadenia and tenderness over the right side of the thoracic paraspinal muscles Lumber spine moter stegnth lower extremities ,thigh and legs 5/5 Right side , 5/5 Left side - Constitutional Constitutional Comment(s): Computed tomography scan of the cervical spine = done 10/27/2019= spondylitic changes in the cervical spine, and anterior fusion at C5 6 Assessment and Plan Plan: Assessment and plan=1-right intercostal neuralgia. 2-cervical spondylosis. 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 I will increase Neurontin to 300 mg 3 times a day, patient could benefit from muscle relaxant baclofen 10 mg twice a day Patient could benefit from physical therapy for evaluation and treatment regarding his myofascial pain Patient will follow up in the pain clinic in 4 weeks , if he continued to have neck pain he'll be candidate for cervical epidural steroid injection And trigger point injection in the cervical para spinal muscles. Patient will be candidate for intercostal nerve block if he continued to have right-sided chest wall pain Time with Patient: Less than 30 PQRS Measure Charge Sheet Measure #130: Documentation of Current Meds in Medical Chart: Patient's medications documented in chart Measure #226: Tobacco Use: Screen & Cessation Intervention: Pt screened for tobacco use AND intervention given Measure #111: Pneumonia Vaccination: Pneumococcal vaccine administered or previously received Measure #47: Advance Care Plan: Advance care planning discussed & documented, pt chose/unable to give Measure #412: Opioid Treatment Agreement: Documented signed opioid trtmnt agreemnt min once during opioid trtmnt Measure #408: Opioid Therapy Follow-up Evaluation: Patient had f/u eval minimum every 3 months during opioid therapy Measure #317: Preventitive Care & Scrn High Bld Press & F/U: Normal blood pressure, f/u not required Measure #128: Body Mass Index (BMI) Screening & Follow-up: BMI documented ABOVE normal parameters - f/u documented Measure #131: Pain Assessment & Follow-up: Pain positive & plan documented, Follow-up scheduled Measure #431: Unhealthy Alcohol Use Preventative Care & Scrn: Patient not identified as an unhealthy alcohol user PQRS Narrative: Smoking Status Current every day smoker Blood Pressure 129/65 Pain Intensity [Neck] 7 Scale Used Numeric (1 - 10) Hx Alcohol Use (MH) No Home Medications: Ambulatory Orders glipiZIDE [Glucotrol] 10 mg PO BID 03/12/15 Albuterol Inhaler [Ventolin Hfa Inhaler] 1 - 2 puff INHALATION RT-Q6H PRN #1 inhaler 07/08/19 Multivitamins, Thera [Multivitamin (formulary)] 1 tab PO DAILY 07/08/19 Lidocaine 5% Patch [Lidoderm 5% Patch] 1 patch TOPICAL DAILY PRN 08/08/19 Loratadine [Claritin] 10 mg PO DAILY 08/08/19 Meloxicam 15 mg PO DAILY 08/08/19 Metoprolol Tartrate 25 mg PO DAILY 08/13/19 Atorvastatin [Lipitor] 40 mg PO HS 09/13/19 Lisinopril [Zestril] 10 mg PO DAILY 09/13/19 Polyethylene Glycol 3350 [Miralax] 17 gm PO DAILY PRN 09/13/19 Ranitidine HCl [Zantac] 150 mg PO BID 09/13/19 Gabapentin [Neurontin] 100 mg PO BID 11/30/19 traMADol HCl [Ultram] 50 mg PO BID PRN 12/23/19 Controlled Substance Measures - Controlled Substance Measures Is patient prescribed a controlled substance at discharge?: Yes When asked, does pt state using other controlled substances?: No If prescribed controlled substance>3 days was MAPS reviewed?: Yes If Rx opioid, was Start Talking consent form obtained?: Yes If opioid is for acute pain is fill amount 7 days or less?: No Was information provided regarding opioid addiction?: Yes
== END | disposition home or self-care (01) ==
LOC: PNWHC3 12:22
PROVIDERS: ATTEND Specialist
DX: M47.812 Spondylosis without myelopathy or radiculopathy, cervical region (principal); M96.1 Postlaminectomy syndrome, not elsewhere classified; G58.8 Other specified mononeuropathies; M79.18 Myalgia, other site; F17.200 Nicotine dependence, unspecified, uncomplicated; Z79.84 Long term (current) use of oral hypoglycemic drugs; Z79.1 Long term (current) use of non-steroidal anti-inflammatories (NSAID); Z79.891 Long term (current) use of opiate analgesic; Z79.899 Other long term (current) drug therapy
CPT/HCPCS: 99211

== ENCOUNTER 2020-01-20 19:57 | Emergency (ER) | payer MEDICARE ==
[2020-01-20 20:03] VITALS: BP 163/80; PULSE 115; RESP 18; TEMP 98.2
[2020-01-20] MEDS ORDERED: DEXAMETHASONE 4 MG TAB PO STA (20:26)
[2020-01-20] MEDS ORDERED: ACET/COD 300 MG/30 MG STARTER PACK 6 TAB BTL PO STA (20:26)
[2020-01-20] MEDS ORDERED: diphenhydrAMINE 50 MG CAP PO STA (20:26)
[2020-01-20] MEDS ORDERED: HYDROmorphone 1 MG/ML 1 ML SYRINGE IM STA (20:26)
[2020-01-20] MEDS ORDERED: FAMOTIDINE 20 MG TAB PO STA (20:26)
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
== END 2020-01-20 20:46 | disposition home or self-care (01) ==
LOC: EC 19:57
DX: R07.89 Other chest pain (principal); R07.81 Pleurodynia; G89.29 Other chronic pain; Z76.0 Encounter for issue of repeat prescription; E11.9 Type 2 diabetes mellitus without complications; K21.9 Gastro-esophageal reflux disease without esophagitis; E78.5 Hyperlipidemia, unspecified; I10 Essential (primary) hypertension; F17.200 Nicotine dependence, unspecified, uncomplicated; Z79.84 Long term (current) use of oral hypoglycemic drugs; Z79.899 Other long term (current) drug therapy; Z79.1 Long term (current) use of non-steroidal anti-inflammatories (NSAID); Z88.6 Allergy status to analgesic agent; Z88.8 Allergy status to other drugs, medicaments and biological substances; Z98.1 Arthrodesis status
CPT/HCPCS: 99285; 96372; J8540; J1170

== ENCOUNTER 2020-01-21 10:56 | Emergency (ER) | payer MEDICARE ==
[2020-01-21 11:04] VITALS: BP 154/73; PULSE 103; RESP 18; TEMP 97.9
[2020-01-21] MEDS ORDERED: HYDROmorphone 1 MG/ML 1 ML SYRINGE IVP STA (12:01)
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
== END 2020-01-21 12:26 | disposition home or self-care (01) ==
LOC: EC 10:56
DX: R07.81 Pleurodynia (principal); R07.9 Chest pain, unspecified; E11.9 Type 2 diabetes mellitus without complications; I10 Essential (primary) hypertension; K21.9 Gastro-esophageal reflux disease without esophagitis; E78.5 Hyperlipidemia, unspecified; F41.9 Anxiety disorder, unspecified; F32.9 Major depressive disorder, single episode, unspecified; F17.200 Nicotine dependence, unspecified, uncomplicated; Z79.899 Other long term (current) drug therapy; Z79.84 Long term (current) use of oral hypoglycemic drugs; Z79.1 Long term (current) use of non-steroidal anti-inflammatories (NSAID); Z88.6 Allergy status to analgesic agent; Z88.1 Allergy status to other antibiotic agents; Z88.8 Allergy status to other drugs, medicaments and biological substances; Z98.1 Arthrodesis status
CPT/HCPCS: 99285; 96374; 93005; J1170

== ENCOUNTER 2020-01-23 15:39 | Emergency (ER) | payer MEDICARE ==
[2020-01-23 15:45] VITALS: BP 135/75; PULSE 104; TEMP 97.6
[2020-01-23] MEDS ORDERED: ORPHENADRINE 30 MG/ML 2 ML VIAL IM STA (15:54)
[2020-01-23] MEDS ORDERED: MORPHINE SULFATE 4 MG/ML SYRINGE IM STA (15:54)
[2020-01-23] MEDS ORDERED: ACET/COD 300 MG/30 MG STARTER PACK 6 TAB BTL PO STA (15:55)
[2020-01-23 15:58] VITALS: RESP 16
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
== END 2020-01-23 16:20 | disposition home or self-care (01) ==
LOC: EC 15:39
DX: R07.81 Pleurodynia (principal); E11.9 Type 2 diabetes mellitus without complications; K21.9 Gastro-esophageal reflux disease without esophagitis; E78.5 Hyperlipidemia, unspecified; I10 Essential (primary) hypertension; F17.200 Nicotine dependence, unspecified, uncomplicated; Z53.29 Procedure and treatment not carried out because of patient's decision for other reasons; Z87.828 Personal history of other (healed) physical injury and trauma; Z79.84 Long term (current) use of oral hypoglycemic drugs; Z79.1 Long term (current) use of non-steroidal anti-inflammatories (NSAID); Z79.899 Other long term (current) drug therapy; Z88.6 Allergy status to analgesic agent; Z88.8 Allergy status to other drugs, medicaments and biological substances
CPT/HCPCS: 99285; 96372 ×2; J2270; J2360

== ENCOUNTER 2020-01-26 17:25 | Emergency (ER) | payer MEDICARE ==
[2020-01-26 17:42] VITALS: BP 125/74; RESP 18; TEMP 98.1
[2020-01-26] MEDS ORDERED: ORPHENADRINE 30 MG/ML 2 ML VIAL IM STA (18:13)
[2020-01-26] MEDS ORDERED: DIAZEPAM 5 MG TAB PO STA (18:14)
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
[2020-01-26 18:53] VITALS: PULSE 88
== END 2020-01-26 18:48 | disposition home or self-care (01) ==
LOC: EC 17:25
DX: G89.29 Other chronic pain (principal); R07.81 Pleurodynia; E11.9 Type 2 diabetes mellitus without complications; I10 Essential (primary) hypertension; E78.5 Hyperlipidemia, unspecified; K21.9 Gastro-esophageal reflux disease without esophagitis; F17.200 Nicotine dependence, unspecified, uncomplicated; Z79.84 Long term (current) use of oral hypoglycemic drugs; Z79.1 Long term (current) use of non-steroidal anti-inflammatories (NSAID); Z79.899 Other long term (current) drug therapy; Z88.6 Allergy status to analgesic agent; Z88.8 Allergy status to other drugs, medicaments and biological substances; Z98.1 Arthrodesis status
CPT/HCPCS: 99283; 96372; J2360

== ENCOUNTER → 2020-02-23 | Outpatient (CLI) | payer MEDICARE, OTHER ==
--- NOTE | 2020-02-25 12:41 | P.PAINPG ---
Subjective Progress Note Date: 02/25/20 THIS ENCOUNTER WAS PERFORMED A TELEMEDICINE VISIT VIA TWO-WAY AUDIO TO MINIMIZE RISK AND TRANSMISSION OF COVID-19. This is a follow-up visit for this 64 year old male, with a history of chronic right-sided intercostal neuralgia, previously we have done right side intercos tomy nerve block at T11 ,T12 , x2 , patient reports 100% pain relief for a couple of weeks up to one month, and currently he is complaining of right-sided upper back pain, in same distribution as before. Pain is rated as 5-7/10, constant, sharp, stabbing. Pain is worse with laying on right side and raising right arm above head, no relieving factors noted. he doesn't have any numbness or tingling sensation in the upper extremities, he does not have any weakness, he does not have any change in the bowel movement or urination,he continues to use [id number] mg 3 times a day, he has stopped taking baclofen as it did not help. Review of systems is negative for chest pain, shortness of breath, new onset weakness, numbness/tingling, abdominal pain, malaise, fever, night sweats, chills, homicidal or suicidal ideation, or bowel or bladder incontinence. Objective physical exam was unable to be performed at this time medicine visit as the patient does not have video capabilities. imaging: Computed tomography scan of the cervical spine = done 10/27/2019= spondylitic changes in the cervical spine, and anterior fusion at C5 6 Assessment and Plan Plan: Assessment and plan=1-right intercostal neuralgia. 2-cervical spondylosis. 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 patient will be scheduled for repeat right-sided intercostal nerve block at T11, T12 once the clinic opens for procedures. Patient does not currently require refill on Neurontin, as he is recently filled it. PQRS Measure Charge Sheet PQRS Narrative: Smoking Status Current every day smoker Hx Alcohol Use (MH) No Home Medications: Ambulatory Orders glipiZIDE [Glucotrol] 10 mg PO BID 03/12/15 Albuterol Inhaler (Mhu) [Ventolin Hfa Inhaler (Mhu)] 1 - 2 puff INHALATION RT- Q6H PRN #1 inhaler 07/08/19 Multivitamins, Thera [Multivitamin (formulary)] 1 tab PO DAILY 07/08/19 Lidocaine 5% Patch [Lidoderm 5% Patch] 1 patch TOPICAL DAILY PRN 08/08/19 Loratadine [Claritin] 10 mg PO DAILY 08/08/19 Meloxicam 15 mg PO DAILY 08/08/19 Metoprolol Tartrate 25 mg PO DAILY 08/13/19 Atorvastatin [Lipitor] 40 mg PO HS 09/13/19 Lisinopril [Zestril] 10 mg PO DAILY 09/13/19 Polyethylene Glycol 3350 [Miralax] 17 gm PO DAILY PRN 09/13/19 Ranitidine HCl [Zantac] 150 mg PO BID 09/13/19 Gabapentin [Neurontin] 100 mg PO BID 11/30/19 traMADol HCl [Ultram] 50 mg PO BID PRN 12/23/19 Furosemide [Lasix] 40 mg PO DAILY 2 Days #2 tablet 02/24/20 Controlled Substance Measures - Controlled Substance Measures Is patient prescribed a controlled substance at discharge?: No
== END | disposition home or self-care (01) ==
LOC: PNWHC3 10:12
PROVIDERS: ATTEND Anesthesiology
DX: Z53.9 Procedure and treatment not carried out, unspecified reason (principal)

== ENCOUNTER 2020-02-24 15:10 | Emergency (ER) | payer MEDICARE, OTHER ==
[2020-02-24 15:16] VITALS: RESP 18
[2020-02-24] MEDS ORDERED: FUROSEMIDE 10 MG/ML 4 ML VIAL IV STA (15:54)
[2020-02-24] MEDS ORDERED: MORPHINE SULFATE 4 MG/ML SYRINGE IV STA (15:55)
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
[2020-02-24 16:16] LABS: Basophils % (A) 0 %; Eosinophils # (A) 0.3 k/uL (0-0.7); Eosinophils % (A) 5 %; HCT 40.3 % (39.0-53.0); HGB 13.8 gm/dL (13.0-17.5); Lymphocytes # (A) 1.3 k/uL (1.0-4.8); Lymphocytes % (A) 25 %; MCH 32.6 pg (25.0-35.0); MCHC 34.4 g/dL (31.0-37.0); MCV 94.8 fL (80.0-100.0); Mean Platelet Volume 6.7; Monocytes # (A) 0.3 k/uL (0-1.0); Monocytes % (A) 6 %; Neutrophils # (A) 3.2 k/uL (1.3-7.7); Neutrophils % (A) 62 %; Platelet Count 248 k/uL (150-450); RBC 4.25 m/uL (4.30-5.90); RDW 11.8 % (11.5-15.5); WBC 5.1 k/uL (3.8-10.6)
[2020-02-24 16:24] LABS: African American GFR (CKD) >90 (>60 ml/min/1.73 sqM); Anion Gap 4 mmol/L; Blood Urea Nitrogen 11 mg/dL (9-20); Calcium 9.3 mg/dL (8.4-10.2); Carbon Dioxide 29 mmol/L (22-30); Chloride 103 mmol/L (98-107); Glucose 98 mg/dL (74-99); Non-African American GFR(CKD) >90 (>60 ml/min/1.73 sqM); Potassium 4.2 mmol/L (3.5-5.1); Sodium 136 mmol/L (137-145)
--- NOTE | 2020-02-24 16:29 | XR ---
EXAMINATION TYPE: XR chest 2V DATE OF EXAM: 02/24/2020 COMPARISON: 11/17/2019 HISTORY: Lower extremity edema. History of congestive heart failure. TECHNIQUE: Frontal and lateral views of the chest are obtained. FINDINGS: There is no focal air space opacity, pleural effusion, or pneumothorax seen. The cardiac silhouette size is within normal limits. Prominent the cardiac fat pad is unchanged from the prior. T he osseous structures are intact. Mild multilevel degenerative change of the spine. Nipple shadow ove rlies the right lung base laterally as this was not seen on the prior of 11/17/2019. Partial visualiza tion of a cervical fusion device. IMPRESSION: No acute cardiopulmonary process.
[2020-02-24 17:26] VITALS: BP 138/75; PULSE 82; TEMP 97.8
== END 2020-02-24 17:26 | disposition home or self-care (01) ==
LOC: EC 15:10
DX: M79.89 Other specified soft tissue disorders (principal); M25.571 Pain in right ankle and joints of right foot; M25.572 Pain in left ankle and joints of left foot; E11.9 Type 2 diabetes mellitus without complications; I10 Essential (primary) hypertension; E78.5 Hyperlipidemia, unspecified; K21.9 Gastro-esophageal reflux disease without esophagitis; F17.200 Nicotine dependence, unspecified, uncomplicated; Z79.1 Long term (current) use of non-steroidal anti-inflammatories (NSAID); Z79.84 Long term (current) use of oral hypoglycemic drugs; Z79.899 Other long term (current) drug therapy; Z88.6 Allergy status to analgesic agent; Z88.8 Allergy status to other drugs, medicaments and biological substances; Z98.1 Arthrodesis status
CPT/HCPCS: 36415; 93005; 83880; 80048; 85025; 71046; 99284; 96374; 96375; J2270; J1940

== ENCOUNTER → 2020-03-17 | Outpatient (CLI) | payer MEDICARE, OTHER | END | disposition home or self-care (01) | LOC: LABWHC1 16:26 | PROVIDERS: ATTEND Orthopaedic Surgery Orthopaedic Surgery of the Spine | DX: Z53.9 Procedure and treatment not carried out, unspecified reason (principal) ==

== ENCOUNTER 2024-02-09 15:41 | Emergency (ER) | payer MEDICARE, OTHER ==
[2024-02-09 15:54] VITALS: TEMP 98.1
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
[2024-02-09 17:14] VITALS: BP 150/68; PULSE 96; RESP 18
== END 2024-02-09 17:50 | disposition home or self-care (01) ==
LOC: EC 15:41
DX: Z76.0 Encounter for issue of repeat prescription (principal); F17.200 Nicotine dependence, unspecified, uncomplicated; Z88.6 Allergy status to analgesic agent; Z88.8 Allergy status to other drugs, medicaments and biological substances; Z88.1 Allergy status to other antibiotic agents
CPT/HCPCS: 99283

== ENCOUNTER → 2024-09-23 | Outpatient (CLI) | payer MEDICARE, OTHER ==
--- NOTE | 2024-09-23 14:54 | CTL ---
EXAMINATION TYPE: CT Low Dose Lung DATE OF EXAM ORDERED: 09/23/2024 COMPARISON: Chest radiograph 02/24/2020, CTA chest 07/04/2019 CLINICAL INDICATION: Male, 69 years old with history of F17.210 nicotine dependence; PHH, Nicotine de pendence, Lung cancer screening, History of Smoking/tobacco use. TECHNIQUE: Low dose computed tomography scan was performed through the chest at 1 mm thick sections a nd reconstructed images in multiple planes at 1 mm and [address] DLP: [address] CTDI: 2.7 mGy Automated exposure control for dose reduction was used. CT DIAGNOSTIC QUALITY: Satisfactory FINDINGS: Nodules: Right middle lobe subpleural 3.5 mm pulmonary nodule (series 6, image 54). Stable medial right upper lobe 3.6 mm pulmonary nodule (series 6, image 23). LUNGS: COPD: Severity: None Fibrosis: Severity: None Lymph nodes: None Other findings: None RIGHT PLEURAL SPACE: Effusion: None Calcification: None Thickening: None Pneumothorax: None LEFT PLEURAL SPACE: Effusion: None Calcification: None Thickening: None Pneumothorax: None HEART: Heart Size: Normal Coronary Calcification: Small Pericardial Effusion: None OTHER FINDINGS: Upper abdomen: Few hepatic cysts measuring up to 1.5 cm. Fatty atrophy of the pancreas. Bony thorax: DISH of the visualized spine. Supraclavicular region: None Other: None IMPRESSION: Couple of pulmonary nodules measuring less than [address] LUNG RAD AND CT CHEST RECOMMENDATION: Lung-Rad 2 Benign Appearance or Behavior: Continue annual sc reening with LDCT in 12 months. S Modifier (other clinically significant findings): None [facility], , 09/23/2024 2:52 PM
== END | disposition home or self-care (01) ==
LOC: RADCTMAIN 13:06
PROVIDERS: ATTEND Family Medicine
DX: Z12.2 Encounter for screening for malignant neoplasm of respiratory organs (principal); F17.210 Nicotine dependence, cigarettes, uncomplicated; R91.8 Other nonspecific abnormal finding of lung field
CPT/HCPCS: 71271